=== PATIENT | male | born 1950 | race Caucasian/White ===

== ENCOUNTER 2018-08-23 12:00 | Observation (INO) | payer MEDICARE, SELFPAY ==
[2018-08-23] VITALS (11 sets, daily range): BP systolic 110–164; BP diastolic 55–102; PULSE 0–71; RESP 12–16; TEMP 36.6–36.7; O2SAT 94–97; BMI 35.3; BMI 34.7; BMI 34.8
--- NOTE | 2018-08-23 12:11 | RAD_ITS ---
We are attempting to reach an attending provider to discuss findings. An addendum with communication details will be sent when the communication is complete. STUDY: X-RAY CHEST REASON FOR EXAM: Male, 68 years old. Chest pain. TECHNIQUE: COMPARISON: None. FINDINGS: There is prominence of the left epicardial fat. The lungs are clear and expanded. There is no demonstrated pleural abnormality. Normal size heart. Normal mediastinum and steven. Normal visualized pulmonary arteries. Normal visualized aortic arch and descending thoracic aorta. Normal visualized thoracic spine. Normal visualized ribs, clavicles, and shoulders. There is no demonstrated abnormality of the visualized soft tissue structures of the upper abdomen. RAD/Chest 1 View (Portable) IMPRESSION: Prominence of the left epicardial fat. Other underlying entities aren't excluded. PA and lateral views may be helpful for further evaluation. Otherwise normal x-ray examination of the chest. Electronically Signed: Gianni Mcrae, at 12:37 EDT Tel , Service support ,
--- NOTE | 2018-08-23 12:11 | EKG12_ITS ---
Test Reason : CP Blood Pressure : / mmHG Vent. Rate : 061 BPM Atrial Rate : 061 BPM P-R Int : 246 ms QRS Dur : 094 ms QT Int : 404 ms P-R-T Axes : 034 002 021 degrees QTc Int : 406 ms Sinus rhythm with 1st degree A-V block Septal infarct , age undetermined Abnormal ECG Confirmed by ATILIO CARRERA ([id number]), editor greeting card SEE NAILS ([id number]) on 08/25/2018 1:50:14 PM Referred By: DAJUAN Confirmed By:ATILIO CARRERA
--- NOTE | 2018-08-23 12:14 | ED.VISSUMM ---
- ER Visit Summary Date of Service: 08/23/18 Chief Complaint: Chest pain History of Present Illness: The patient is a 68 M presenting with chest pain. Patient states he has had intermittent chest pain over the past week. He states it has been becoming more frequent. He states he notes when he walks his dog and goes uphill he becomes short of breath and has midsternal chest pressure. He has associated nausea and lightheadedness. He has relief with rest. He states that he has not felt well over the last couple days with fatigue and weakness. He has a history of hypertension, diabetes, hypercholesterolemia. He is not a smoker. No PE/DVT risk factors. Physical Examination: Vitals are stable. Patient is afebrile. Alert no acute distress. HEENT exam is unremarkable. Neck is supple. Lungs are clear and equal bilaterally. Heart is regular rate and rhythm. Abdomen is soft nontender nondistended. Extremities are unremarkable. Skin is warm and dry. No focal neurologic deficit. Remainder of exam is unremarkable. Emergency Department Course and Treatment: Patient was given aspirin, nitro. EKG is sinus rate of 61 with no acute ischemic changes. Chest x-ray shows Prominence of the left epicardial fat. Otherwise normal x-ray examination of the chest. CBC, chemistries unremarkable. Troponin is negative. He is pain-free after nitro. Discussed with Dr. Rojas for admission. Disposition: Admission Impression: Chest pain This note was generated with Lingt dictation software. It may contain incorrect words, spelling, and punctuation that were not noted in review of the chart prior to signing ED Disposition - Plan for ED Patient: Referrals: Chris Calhoun MD [Primary Care Provider] -
[2018-08-23 12:33] LABS: Absolute Lymphocyte Count 1.53 X10^3/ul (0.83-4.51); Absolute Neutrophil Count 3.4 X10^3/uL (2.0-7.7); Basophil# 0.05 X10^3/uL; Basophil% 0.9 % (0-1); Eosinophil# 0.18 X10^3/uL; Eosinophils% 3.1 % (0-5); Hematocrit 44.5 % (40-54); Hemoglobin 15.2 g/dl (13.0-16.5); Lymphocyte # 1.53 X10^3/ul (4.0); Lymphocyte % 26.2 % (19-41); Mean Corp Hgb Conc 34.2 g/gl (32-36); Mean Corpuscular Hgb 32.1 pg (27.0-32.0); Mean Corpuscular Volume 94.1 fL (80-94); Mean Platelet Vol. 9.6 fl (6.2-12.0); Monocyte# 0.69 X10^3/uL; Monocyte% 11.8 % (0-10); Neutrophil # 3.37 X10^3/uL (2.7-7.7); Neutrophil % 57.8 % (47-70); Platelet Count 202 K/mm3 (150-450); RBC Distribution Width CV 11.8 % (11.6-14.6); RBC Distribution Width SD 39.9 fl (35.1-43.9); Red Blood Count 4.73 M/mm3 (4.6-6.2); White Blood Count 5.8 K/mm3 (4.4-11.0)
[2018-08-23 12:35] LABS: POSITIVE COUNT NO; POSITIVE DIFFERENTIAL NO; POSITIVE MORPHOLOGY NO
[2018-08-23] MEDS: Aspirin 81 MG TAB.CHEW 324 MG PO (12:44)
[2018-08-23] MEDS: Nitroglycerin SL (ED/IMG/CATH) 0.4 MG TABLET SUBLINGUAL (12:45)
--- NOTE | 2018-08-23 12:47 | ED.RN ---
PT DENIES ANY RECIENT USE OF ED MEDS, CHEST PRESSURE IS A 4/10 AT ADMIN VS 146/90 61 96%
[2018-08-23 12:49] LABS: Anion Gap 7 (5-15); BUN 10 mg/dL (7-18); BUN/Creat Ratio 10.3 RATIO (10-20); Calcium,Total 9.1 mg/dL (8.5-10.1); Chloride 105 mmol/L (98-107); Creatinine, Serum 0.97 mg/dL (0.70-1.30); EST Glomerular Filtration Rate 82 mL/min (>60); Est Glom Filt Rate - Afr Amer 99 mL/min (>60); Glucose 109 mg/dL (74-106); Potassium 4.4 mmol/L (3.5-5.1); Sodium Level 140 mmol/L (136-145)
--- NOTE | 2018-08-23 13:06 | NURSING ---
DR HUMAIRA GRAFF
--- NOTE | 2018-08-23 13:06 | NURSING ---
FAYEU CP, R/O ACS HUMAIRA
--- NOTE | 2018-08-23 13:13 | NURSING ---
DR GERARDO IN ER
--- NOTE | 2018-08-23 13:44 | PCM.HP.STD ---
Problem List (1) Chest pain Status: Acute (2) Hypertension Status: Chronic (3) Diabetes mellitus type 2 Status: Chronic (4) Dyslipidemia Status: Chronic History of Present Illness Date of Admission: 08/23/18 Chief Complaint: Chest pain for 1 to 2 weeks The patient is a 68 year old M with history of hypertension, dyslipidemia and on primary prophylaxis baby aspirin but no previous [place]?coronary artery disease him to ER with chest pain on exertion for 1 to 2 weeks. Patient noticed chest pain with associated shortness of breath on going uphill with dogs in [place]. Chest pain is intermittent, localized midsternal with no radiation associated with exertion and relieved with rest. It seems angina in quality. Denies previous evaluation by stress test or cardiac cath. No history of his smoking or chronic lung disease. He mentioned he had some chest congestion and one time loose bowel movement, semisolid few days ago but denies fever or chills. [] EKG in ER shows normal sinus rhythm with first-degree AV block, [place] interval 246 ms. QTc [address]-T changes. Chest x-ray does not show any acute change. Past Medical History Past Medical History (Chronic Problems): Chronic Problems Hypertension (Chronic) Diabetes mellitus type 2 (Chronic) Dyslipidemia (Chronic) Allergies No Known Allergies Allergy (Verified 08/23/18 12:01) Home Medications: Ambulatory Orders Medication Instructions Recorded Aspirin [Aspirin, Baby] 81 mg PO DAILY 08/23/18 Losartan Potassium [Cozaar] 50 mg PO DAILY 08/23/18 Metformin HCl [Metformin ER 1,000 mg PO DAILY 08/23/18 Osmotic] Simvastatin [Zocor] 20 mg PO QHS 08/23/18 Smoking Status: Never smoker - *Family History Paternal History Items: No pertinent history - Of coronary artery disease or [place]. He said perhaps grandfather had some heart disease Review of Systems Constitutional: Denies: Chills, Fever, Weight Change HEENT: Denies: Head Aches, Sinus Congestion, Sinus Drainage Cardiovascular: Reports: Chest Pain, Chest Tightness. Denies: Palpitations Respiratory: Reports: Shortness of breath upon exertion. Denies: Cough, Shortness of breath at rest, Sputum production Gastrointestinal: Denies: Abdominal Pain, Nausea, Vomiting Genitourinary: Denies: Dysuria Musculoskeletal: Denies: Joint Pain, Joint Tenderness Skin: Denies: Rash, Wounds Neurological: Denies: Balance problems, Focal weakness, Numbness, Tingling Psychiatric: Denies: Anxiety, Depression, Homicidal Ideations, Suicidal Ideations Hematologic/ Lymphatic: Denies: Easy Bruising, Easy Bleeding VTE Information - Inpt Only VTE Present on Admission: No VTE Mechan Device Prophylaxis: None VTE Pharm Prophylaxis ordered?: Yes Patient Problems: Active and Suspected Problems Chest pain (Acute) - Physical Exam General: Alert, Oriented x3, Cooperative HEENT: Atraumatic, PERRLA, EOMI, Normocephalic Neck: Supple, No JVD, Negative Carotid Bruits Lungs: Clear to auscultation, Normal air movement, No rhonchi, No wheeze, No rales Cardiovascular: Regular rate, Regular Rhythm, Normal S1, Normal S2, No murmurs Abdomen: Bowel Sounds Present, Soft, Non Tender, Non-Distended Extremities: No edema, Capillary Refill Less than 3 Seconds Skin: No rashes, No breakdown Musculoskeletal: No Tenderness to Palpation of Joints or Extremities, Arthritic Changes Lymphatic: No Cervical, Supraclavicular, or Inguinal Adenopathy Neurological: Cranial nerves II-XII grossly intact, Deep Tendon Reflexes 2+/4 and Symmetrical, Neuro grossly intact, Motor Exam 5/5 strength throughout Psych/Mental Status: Normal Affect, Appropriate Vital Signs Temp Pulse Resp BP Pulse Ox 97.9 F 0 L 12 135/88 H 96 08/23/18 12:01 08/23/18 13:11 08/23/18 13:11 08/23/18 13:11 08/23/18 13:11 Oxygen Delivery Method Room Air Weight: 246 lb 4.101 oz Body Mass Index (BMI) 35.3 Laboratory Tests Past 24 Hrs 08/23/18 08/23/18 12:20 12:20 WBC 5.8 RBC 4.73 Hgb 15.2 Hct 44.5 MCV 94.1 H MCH 32.1 H MCHC 34.2 RDW 11.8 RDW Differential 39.9 Plt Count 202 MPV 9.6 Immature Gran % (Auto) 0.200 Neut % (Auto) 57.8 Lymph % (Auto) 26.2 [place] % (Auto) 11.8 H Eos % (Auto) 3.1 Baso % (Auto) 0.9 Absolute Neuts (auto) 3.4 Absolute Lymphs (auto) 1.53 Total Counted Not Reportable Sodium 140 Potassium 4.4 Chloride 105 Carbon Dioxide 28.0 Anion Gap 7 BUN 10 Creatinine 0.97 Estim Creat Clear Calc 76.30 Est GFR (MDRD) Af Amer 99 Est GFR (MDRD) Non-Af 82 BUN/Creatinine Ratio 10.3 Glucose 109 H Calcium 9.1 Troponin I < 0.015 Assessment/Plan All Active Problems Chest pain (Acute) The patient is a 68 year old M with history of hypertension, dyslipidemia and on primary prophylaxis baby aspirin but no previous [place]?coronary artery disease him to ER with chest pain on exertion for 1 to 2 weeks. Patient noticed chest pain with associated shortness of breath on going uphill with dogs in [place]. Chest pain is intermittent, localized midsternal with no radiation associated with exertion and relieved with rest. It seems angina in quality. Denies previous evaluation by stress test or cardiac cath. No history of his smoking or chronic lung disease. [] EKG in ER shows normal sinus rhythm with first-degree AV block, GA interval 246 ms. QTc [address]-T changes. Chest x-ray does not show any acute change. 1.Typical chest pain of anginal quality; possible unstable angina: The patient is being admitted on PCU. Serial troponin enzymes and EKG. Patient was told that he has to stay until Saturday for treadmill nuclear stress test but seems not very eager to stay but will decide tomorrow based on troponin results. Fasting profile and TSH tomorrow a.m. 2. Flulike illness a few days ago: Flu panel test ordered. Currently does not have cough, fever or chills or GI symptoms or diarrhea. 3. Diabetes mellitus type 2: Glucose in BMP is 109. On metformin which is being held. A1c tomorrow a.m. 4. Hypertension: Pressure is good. Resume home medication losartan. 5. Dyslipidemia: On home statin. DVT prophylaxis: On Lovenox 40 mg subcu daily. Laboratory Results 08/23/18 12:20: WBC 5.8, RBC 4.73, Hgb 15.2, Hct 44.5, MCV 94.1 H, MCH 32.1 H, MCHC 34.2, RDW 11.8, RDW Differential 39.9, Plt Count 202, MPV 9.6, Immature Gran % (Auto) 0.200, Neut % (Auto) 57.8, Lymph % (Auto) 26.2, [place] % (Auto) 11.8 H, Eos % (Auto) 3.1, Baso % (Auto) 0.9, Absolute Neuts (auto) 3.4, Absolute Lymphs (auto) 1.53, Total Counted Not Reportable 08/23/18 12:20: Sodium 140, Potassium 4.4, Chloride 105, Carbon Dioxide 28.0, Anion Gap 7, BUN 10, Creatinine 0.97, Estim Creat Clear Calc 76.30, Est GFR (MDRD) Af Amer 99, Est GFR (MDRD) Non-Af 82, BUN/Creatinine Ratio 10.3, Glucose 109 H, Calcium 9.1, Troponin I < 0.015 Clinical Impression(s) from Imaging Studies Chest X-Ray 08/23/18 12:11 IMPRESSION: Prominence of the left epicardial fat. Other underlying entities aren't excluded. PA and lateral views may be helpful for further evaluation. Otherwise normal x-ray examination of the chest. \ Code Visit OBSV E&M: 15742 Initial observation care L3
--- NOTE | 2018-08-23 13:49 | HP.PCM_ITS ---
Problem List (1) Chest pain Status: Acute (2) Hypertension Status: Chronic (3) Diabetes mellitus type 2 Status: Chronic (4) Dyslipidemia Status: Chronic History of Present Illness Date of Admission: 08/23/18 Chief Complaint: Chest pain for 1 to 2 weeks The patient is a 68 year old M with history of hypertension, dyslipidemia and on primary prophylaxis baby aspirin but no previous [place]?coronary artery disease him to ER with chest pain on exertion for 1 to 2 weeks. Patient noticed chest pain with associated shortness of breath on going uphill with dogs in [place]. Chest pain is intermittent, localized midsternal with no radiation associated with exertion and relieved with rest. It seems angina in quality. Denies previous evaluation by stress test or cardiac cath. No history of his smoking or chronic lung disease. He mentioned he had some chest congestion and one time loose bowel movement, semisolid few days ago but denies fever or chills. [] EKG in ER shows normal sinus rhythm with first-degree AV block, [place] interval 246 ms. QTc [address]-T changes. Chest x-ray does not show any acute change. Past Medical History Past Medical History (Chronic Problems): Chronic Problems Hypertension (Chronic) Diabetes mellitus type 2 (Chronic) Dyslipidemia (Chronic) Allergies No Known Allergies Allergy (Verified 08/23/18 12:01) Home Medications: Ambulatory Orders Medication Instructions Recorded Aspirin [Aspirin, Baby] 81 mg PO DAILY 08/23/18 Losartan Potassium [Cozaar] 50 mg PO DAILY 08/23/18 Metformin HCl [Metformin ER 1,000 mg PO DAILY 08/23/18 Osmotic] Simvastatin [Zocor] 20 mg PO QHS 08/23/18 Smoking Status: Never smoker - *Family History Paternal History Items: No pertinent history - Of coronary artery disease or [place]. He said perhaps grandfather had some heart disease Review of Systems Constitutional: Denies: Chills, Fever, Weight Change HEENT: Denies: Head Aches, Sinus Congestion, Sinus Drainage Cardiovascular: Reports: Chest Pain, Chest Tightness. Denies: Palpitations Respiratory: Reports: Shortness of breath upon exertion. Denies: Cough, Shortness of breath at rest, Sputum production Gastrointestinal: Denies: Abdominal Pain, Nausea, Vomiting Genitourinary: Denies: Dysuria Musculoskeletal: Denies: Joint Pain, Joint Tenderness Skin: Denies: Rash, Wounds Neurological: Denies: Balance problems, Focal weakness, Numbness, Tingling Psychiatric: Denies: Anxiety, Depression, Homicidal Ideations, Suicidal Ideations Hematologic/ Lymphatic: Denies: Easy Bruising, Easy Bleeding VTE Information - Inpt Only VTE Present on Admission: No VTE Mechan Device Prophylaxis: None VTE Pharm Prophylaxis ordered?: Yes Patient Problems: Active and Suspected Problems Chest pain (Acute) - Physical Exam General: Alert, Oriented x3, Cooperative HEENT: Atraumatic, PERRLA, EOMI, Normocephalic Neck: Supple, No JVD, Negative Carotid Bruits Lungs: Clear to auscultation, Normal air movement, No rhonchi, No wheeze, No rales Cardiovascular: Regular rate, Regular Rhythm, Normal S1, Normal S2, No murmurs Abdomen: Bowel Sounds Present, Soft, Non Tender, Non-Distended Extremities: No edema, Capillary Refill Less than 3 Seconds Skin: No rashes, No breakdown Musculoskeletal: No Tenderness to Palpation of Joints or Extremities, Arthritic Changes Lymphatic: No Cervical, Supraclavicular, or Inguinal Adenopathy Neurological: Cranial nerves II-XII grossly intact, Deep Tendon Reflexes 2+/4 and Symmetrical, Neuro grossly intact, Motor Exam 5/5 strength throughout Psych/Mental Status: Normal Affect, Appropriate Vital Signs Temp Pulse Resp BP Pulse Ox 97.9 F 0 L 12 135/88 H 96 08/23/18 12:01 08/23/18 13:11 08/23/18 13:11 08/23/18 13:11 08/23/18 13:11 Oxygen Delivery Method Room Air Weight: 246 lb 4.101 oz Body Mass Index (BMI) 35.3 Laboratory Tests Past 24 Hrs 08/23/18 08/23/18 12:20 12:20 WBC 5.8 RBC 4.73 Hgb 15.2 Hct 44.5 MCV 94.1 H MCH 32.1 H MCHC 34.2 RDW 11.8 RDW Differential 39.9 Plt Count 202 MPV 9.6 Immature Gran % (Auto) 0.200 Neut % (Auto) 57.8 Lymph % (Auto) 26.2 [place] % (Auto) 11.8 H Eos % (Auto) 3.1 Baso % (Auto) 0.9 Absolute Neuts (auto) 3.4 Absolute Lymphs (auto) 1.53 Total Counted Not Reportable Sodium 140 Potassium 4.4 Chloride 105 Carbon Dioxide 28.0 Anion Gap 7 BUN 10 Creatinine 0.97 Estim Creat Clear Calc 76.30 Est GFR (MDRD) Af Amer 99 Est GFR (MDRD) Non-Af 82 BUN/Creatinine Ratio 10.3 Glucose 109 H Calcium 9.1 Troponin I < 0.015 Assessment/Plan All Active Problems Chest pain (Acute) The patient is a 68 year old M with history of hypertension, dyslipidemia and on primary prophylaxis baby aspirin but no previous [place]?coronary artery disease him to ER with chest pain on exertion for 1 to 2 weeks. Patient noticed chest pain with associated shortness of breath on going uphill with dogs in [place]. Chest pain is intermittent, localized midsternal with no radiation associated with exertion and relieved with rest. It seems angina in quality. Denies previous evaluation by stress test or cardiac cath. No history of his smoking or chronic lung disease. [] EKG in ER shows normal sinus rhythm with first-degree AV block, [place] interval 246 ms. QTc [address]-T changes. Chest x-ray does not show any acute change. 1.Typical chest pain of anginal quality; possible unstable angina: The patient is being admitted on PCU. Serial troponin enzymes and EKG. Patient was told that he has to stay until Saturday for treadmill nuclear stress test but seems not very eager to stay but will decide tomorrow based on troponin results. Fasting profile and TSH tomorrow a.m. 2. Flulike illness a few days ago: Flu panel test ordered. Currently does not have cough, fever or chills or GI symptoms or diarrhea. 3. Diabetes mellitus type 2: Glucose in BMP is 109. On metformin which is being held. A1c tomorrow a.m. 4. Hypertension: Pressure is good. Resume home medication losartan. 5. Dyslipidemia: On home statin. DVT prophylaxis: On Lovenox 40 mg subcu daily. Laboratory Results 08/23/18 12:20: WBC 5.8, RBC 4.73, Hgb 15.2, Hct 44.5, MCV 94.1 H, MCH 32.1 H, MCHC 34.2, RDW 11.8, RDW Differential 39.9, Plt Count 202, MPV 9.6, Immature Gran % (Auto) 0.200, Neut % (Auto) 57.8, Lymph % (Auto) 26.2, [place] % (Auto) 11.8 H, Eos % (Auto) 3.1, Baso % (Auto) 0.9, Absolute Neuts (auto) 3.4, Absolute Lymphs (auto) 1.53, Total Counted Not Reportable 08/23/18 12:20: Sodium 140, Potassium 4.4, Chloride 105, Carbon Dioxide 28.0, Anion Gap 7, BUN 10, Creatinine 0.97, Estim Creat Clear Calc 76.30, Est GFR (MDRD) Af Amer 99, Est GFR (MDRD) Non-Af 82, BUN/Creatinine Ratio 10.3, Glucose 109 H, Calcium 9.1, Troponin I < 0.015 Clinical Impression(s) from Imaging Studies Chest X-Ray 08/23/18 12:11 IMPRESSION: Prominence of the left epicardial fat. Other underlying entities aren't excluded. PA and lateral views may be helpful for further evaluation. Otherwise normal x-ray examination of the chest. \ Code Visit OBSV E&M: 22243 Initial observation care L3
--- NOTE | 2018-08-23 13:52 | EKG12_ITS ---
Test Reason : CP ADMISSION Blood Pressure : / mmHG Vent. Rate : 058 BPM Atrial Rate : 058 BPM P-R Int : 256 ms QRS Dur : 096 ms QT Int : 418 ms P-R-T Axes : 034 002 017 degrees QTc Int : 410 ms Sinus bradycardia with 1st degree A-V block Septal infarct , age undetermined Abnormal ECG Confirmed by ROULA DAY, PUJA ([id number]), publication editor SEE NAILS ([id number]) on 08/27/2018 2:00:47 PM Referred By: HUMAIRA Confirmed By:PUJA CELESTE MD
--- NOTE | 2018-08-23 20:16 | NURSING ---
This RN finished assessing patient and explained to him what time night time medications would be given. Patient stated his brought home medications in and he had taken his night medications. This RN explained to the patient that we would administer medications from our pharmacy. Also explained to patient that there were certain medications he was not to take because of testing and certain medications he would need to take a specific times for testing. Patient verbalized understanding and agreed to take the medications we provide for him. The medication he took was marked on the MAR as not given.
[2018-08-24 03:00] VITALS: PULSE 55
[2018-08-24 04:17] VITALS: BP 109/68; PULSE 55; RESP 16; TEMP 36.8; O2SAT 94
[2018-08-24 06:13] LABS: Cholesterol 116 mg/dL (200); High Density Lipoprotein 36 mg/dL; Triglycerides 121 mg/dL; Very Low Density Lipoprotein 24 mg/dL (5-40)
[2018-08-24 07:00] VITALS: PULSE 54
[2018-08-24 07:36] LABS: Hemoglobin A1c 7.2 % (4.2-6.3)
--- NOTE | 2018-08-24 07:47 | NURSING ---
pt states will be in to take home medications home.
[2018-08-24 09:20] VITALS: BP 133/91; PULSE 70; RESP 12; TEMP 36.6; O2SAT 93
--- NOTE | 2018-08-24 10:01 | DCINST_ITS ---
- Discharge Diagnoses Current Active Problems: Current Active and Chronic Problems Chest pain (Acute) Hypertension (Chronic) Diabetes mellitus type 2 (Chronic) Dyslipidemia (Chronic) You will use the following diet at home:: Cardiac Your food should be the consistency of: Regular Discharge Activity: Return to Normal Activity Call your doctor if you observe: Fever of 101 or Higher, Inability to urinate, Inability to have a bowel movement, Shortness of breath, Dizziness, Fainting spells, Swelling in the ankles, Chest pain, Calf discomfort, Uncontrolled pain Additional Instructions: treadmill myocardial nuclear perfusion scan in 1 week. Allergies/Adverse Reactions: Allergies No Known Allergies Allergy (Verified 08/23/18 12:01) Medications to take at Discharge Aspirin [Aspirin, Baby] 81 mg PO DAILY 08/23/18 Losartan Potassium [Cozaar] 50 mg PO DAILY 08/23/18 Metformin HCl [Metformin ER Osmotic] 1,000 mg PO DAILY 08/23/18 Simvastatin [Zocor] 20 mg PO QHS 08/23/18 Primary Care Physician: Chris Calhoun MD [Primary Care Provider] - Please follow up with your Primary Care Physician in: in 1-2 week Test Results: Test results from this visit will be discussed in further detail at your follow- up appointment, if applicable.
--- NOTE | 2018-08-24 10:24 | PCM.DC.SUM ---
<Su Rocha - Last Filed: 08/24/18 10:35> Discharge Date and Diagnosis Date of Admission: 08/23/18 Date of Discharge: 08/24/18 - Primary Discharge Diagnosis Active and Suspected Problems 1. Chest pain, ACS ruled out 2. Hypertension 3. Type 2 diabetes mellitus 4. Hyperlipidemia - Secondary Discharge Diagnosis Chronic Problems Hypertension (Chronic) Diabetes mellitus type 2 (Chronic) Dyslipidemia (Chronic) Hospital Course and Treatment Imaging Results: Diagnostic Data Chest X-Ray 08/23/18 12:11 IMPRESSION: Prominence of the left epicardial fat. Other underlying entities aren't excluded. PA and lateral views may be helpful for further evaluation. Otherwise normal x-ray examination of the chest. Electronically Signed: Gianni Thor, at 12:37 EDT Tel , Service support , ADDENDUM: 08/23/18 1253 IMPRESSION: Prominence of the left epicardial fat. Other underlying entities aren't excluded. PA and lateral views may be helpful for further evaluation. Otherwise normal x-ray examination of the chest. N.B. : Eve Walden RN, confirmed on 08/23/2018 12:46:25 (ET) that the referring physician received the radiology report. Electronically Signed: Gianni Mcrae, at 12:37 EDT Tel , Service support , Operations: None Procedures: None Summary of Care Provided: The patient is a 68 year old M admitted 08/23/2018 due to chest pain X 1-2 weeks. Patient reports he has noticed a chest pressure and shortness of breath associated with exertion which is new in the past few weeks. He has a past medical history of hypertension, hyperlipidemia, recent diagnosis type 2 diabetes mellitus placed on metformin approximately 1 month ago. He feels his current symptoms may be due to metformin regimen. Troponin negative. EKG without ST-T changes. Recommended stress test Saturday morning as stress test cannot be completed on Saturday. Patient was adamant about leaving and states he will follow closely with primary care physician and complete stress test as an outpatient. He denies further symptoms during admission. He reports he has follow up with PCP tomorrow. General: Alert, Oriented x3, Cooperative HEENT: Atraumatic, PERRLA, EOMI, Normocephalic Neck: Supple, No JVD, Negative Carotid Bruits Lungs: Clear to auscultation, Normal air movement, No rhonchi, No wheeze, No rales Cardiovascular: Regular rate, Regular Rhythm, Normal S1, Normal S2, No murmurs Abdomen: Bowel Sounds Present, Soft, Non Tender, Non-Distended Extremities: No edema, Capillary Refill Less than 3 Seconds Skin: No rashes, No breakdown Musculoskeletal: No Tenderness to Palpation of Joints or Extremities, Arthritic Changes Lymphatic: No Cervical, Supraclavicular, or Inguinal Adenopathy Neurological: Cranial nerves II-XII grossly intact, Neuro grossly intact Psych/Mental Status: Normal Affect, Appropriate Patient seen and examined prior to discharge. Physical assessment as noted above. Patient is stable for discharge with follow up recommendations as noted above. This patient was seen by JOSEPH Olmstead under the supervision of Dr. Rojas. - Physical Exam Vital Signs Temp Pulse Resp BP Pulse Ox 97.9 F 70 12 133/91 H 93 08/24/18 09:20 08/24/18 09:20 08/24/18 09:20 08/24/18 09:20 08/24/18 09:20 Oxygen Delivery Method Room Air Weight: 242 lb 8.136 oz Body Mass Index (BMI) 34.7 Intake and Output for Last 24 Hours 08/22/18 08/23/18 08/24/18 23:59 23:59 23:59 Intake Total 300 / 300 480 / 480 Balance 300 / 300 480 / 480 Microbiology Past 72 Hours 08/23/18 14:25 - Final Mucosa - Nasopharyngeal Laboratory Tests Past 24 Hrs 08/23/18 08/23/18 08/23/18 12:20 12:20 15:35 WBC 5.8 RBC 4.73 Hgb 15.2 Hct 44.5 MCV 94.1 H MCH 32.1 H MCHC 34.2 RDW 11.8 RDW Differential 39.9 Plt Count 202 MPV 9.6 Immature Gran % (Auto) 0.200 Neut % (Auto) 57.8 Lymph % (Auto) 26.2 [place] % (Auto) 11.8 H Eos % (Auto) 3.1 Baso % (Auto) 0.9 Absolute Neuts (auto) 3.4 Absolute Lymphs (auto) 1.53 Total Counted Not Reportable Sodium 140 Potassium 4.4 Chloride 105 Carbon Dioxide 28.0 Anion Gap 7 BUN 10 Creatinine 0.97 Estim Creat Clear Calc 76.30 Est GFR (MDRD) Af Amer 99 Est GFR (MDRD) Non-Af 82 BUN/Creatinine Ratio 10.3 Glucose 109 H Hemoglobin A1c Calcium 9.1 Troponin I < 0.015 < 0.015 Triglycerides Cholesterol LDL Cholesterol VLDL Cholesterol HDL Cholesterol TSH 08/23/18 08/24/18 08/24/18 18:00 04:58 04:58 WBC RBC Hgb Hct MCV MCH MCHC RDW RDW Differential Plt Count MPV Immature Gran % (Auto) Neut % (Auto) Lymph % (Auto) [place] % (Auto) Eos % (Auto) Baso % (Auto) Absolute Neuts (auto) Absolute Lymphs (auto) Total Counted Sodium Potassium Chloride Carbon Dioxide Anion Gap BUN Creatinine Estim Creat Clear Calc Est GFR (MDRD) Af Amer Est GFR (MDRD) Non-Af BUN/Creatinine Ratio Glucose Hemoglobin A1c 7.2 H Calcium Troponin I < 0.015 Triglycerides 121 Cholesterol 116 LDL Cholesterol 56 VLDL Cholesterol 24 HDL Cholesterol 36 L TSH 1.60 Discharge Diet: Low fat/ Low Cholesterol, Carb Control Diet Discharge Activity: Return to Normal Activity Call your doctor if you observe: Fever of 101 or Higher, Inability to urinate, Inability to have a bowel movement, Shortness of breath, Dizziness, Fainting spells, Swelling in the ankles, Chest pain, Calf discomfort, Uncontrolled pain Home Medications: Medications to take at Discharge Aspirin [Aspirin, Baby] 81 mg PO DAILY 08/23/18 Losartan Potassium [Cozaar] 50 mg PO DAILY 08/23/18 Metformin HCl [Metformin ER Osmotic] 1,000 mg PO DAILY 08/23/18 Simvastatin [Zocor] 20 mg PO QHS 08/23/18 Primary Care Physician: Chris Calhoun MD [Primary Care Provider] - Please follow up with your Primary Care Physician in: in 1-2 week Disposition: Home Minutes spent on discharge:: 35 Patient Condition:: Stable Medical Necessity - Tobacco Use Smoking Status: Never smoker Meaningful Use Info Meaningful Use Diagnoses (Choose all that apply): None applicable <Mateus Rojas - Last Filed: 08/24/18 13:45> Discharge Date and Diagnosis - Secondary Discharge Diagnosis Chronic Problems Hypertension (Chronic) Diabetes mellitus type 2 (Chronic) Dyslipidemia (Chronic) Hospital Course and Treatment Summary of Care Provided: The patient is a 68 year old M was admitted with intermittent chest pain for 1 to 2 weeks along with shortness of breath on exertion. Patient was monitored in PCU. Serial troponin enzymes were negative. EKG not suggestive of ischemic changes. Patient did not want to stay for treadmill nuclear stress test tomorrow on Saturday but wants to go home and complete early next week. Patient does not have symptoms hemodynamically stable. Blood pressure and heart rate well controlled. Acute coronary syndrome ruled out. Discharge medication reconciliation done. Discharge follow-up instructions completed. Discharge process discussed with the patient and all questions were answered to patient's satisfaction. Subjective: Patient did not had any further chest pain or shortness of breath. Patient wants to go home. - Physical Exam General: Alert, Oriented x3, Cooperative HEENT: Atraumatic, PERRLA, EOMI, Normocephalic Neck: Supple, No JVD, Negative Carotid Bruits Lungs: Clear to auscultation, Normal air movement, No rhonchi, No wheeze, No rales Cardiovascular: Regular rate, Regular Rhythm, Normal S1, Normal S2, No murmurs Abdomen: Bowel Sounds Present, Soft, Non Tender, Non-Distended Extremities: No edema, Capillary Refill Less than 3 Seconds Skin: No rashes, No breakdown Musculoskeletal: No Tenderness to Palpation of Joints or Extremities Lymphatic: No Cervical, Supraclavicular, or Inguinal Adenopathy Neurological: Cranial nerves II-XII grossly intact, Deep Tendon Reflexes 2+/4 and Symmetrical, Neuro grossly intact, Motor Exam 5/5 strength throughout Psych/Mental Status: Normal Affect, Appropriate Vital Signs Temp Pulse Resp BP Pulse Ox 97.9 F 70 12 133/91 H 93 08/24/18 09:20 08/24/18 09:20 08/24/18 09:20 08/24/18 09:20 08/24/18 09:20 Oxygen Delivery Method Room Air Weight: 242 lb 8.136 oz Body Mass Index (BMI) 34.7 Intake and Output for Last 24 Hours 08/22/18 08/23/18 08/24/18 23:59 23:59 23:59 Intake Total 300 / 300 480 / 480 Balance 300 / 300 480 / 480 Microbiology Past 72 Hours 08/23/18 14:25 - Final Mucosa - Nasopharyngeal Laboratory Tests Past 24 Hrs 08/23/18 08/23/18 08/24/18 15:35 18:00 04:58 Hemoglobin A1c Troponin I < 0.015 < 0.015 Triglycerides 121 Cholesterol 116 LDL Cholesterol 56 VLDL Cholesterol 24 HDL Cholesterol 36 L TSH 1.60 08/24/18 04:58 Hemoglobin A1c 7.2 H Troponin I Triglycerides Cholesterol LDL Cholesterol VLDL Cholesterol HDL Cholesterol TSH Code Visit OBSV E&M: 10310 Observation care discharge
== END 2018-08-24 10:01 | disposition home or self-care (01) ==
LOC: ED 12:30 → PCU 13:22
PROVIDERS: Admitting Provider Internal Medicine; Emergency Provider Emergency Medicine; Family Provider Family Medicine; PCP Family Medicine; Visit Provider Internal Medicine
DX: R07.89 Other chest pain (principal); R06.02 Shortness of breath; R11.0 Nausea; R42 Dizziness and giddiness; I10 Essential (primary) hypertension; E11.9 Type 2 diabetes mellitus without complications; Z79.899 Other long term (current) drug therapy; Z79.84 Long term (current) use of oral hypoglycemic drugs; Z79.82 Long term (current) use of aspirin; E78.5 Hyperlipidemia, unspecified
CPT/HCPCS: 36415; 71045; 80048; 80061; 83036; 84443; 84484; 85025; 87631; 93005; 99218; 99285; G0378

== ENCOUNTER 2018-09-10 17:25 | Observation (INO) | payer MEDICARE, SELFPAY ==
[2018-08-23 13:54] VITALS: BMI 34.7
[2018-09-10 17:25] VITALS: BP 167/96; PULSE 58; RESP 14; TEMP 36.7; O2SAT 98; BMI 34.4
--- NOTE | 2018-09-10 17:54 | EKG12_ITS ---
Test Reason : CP Blood Pressure : / mmHG Vent. Rate : 057 BPM Atrial Rate : 057 BPM P-R Int : 258 ms QRS Dur : 098 ms QT Int : 416 ms P-R-T Axes : 041 009 009 degrees QTc Int : 404 ms Sinus bradycardia with 1st degree A-V block Otherwise normal ECG Confirmed by ROULA DAY, PUJA ([id number]), fan mail editor ILSA CHURCH ([id number]) on 09/15/2018 1:02:13 PM Referred By: Quintin Lowry Confirmed By:PUJA CELESTE MD
--- NOTE | 2018-09-10 18:00 | RAD_ITS ---
STUDY: X-RAY CHEST REASON FOR EXAM: Male, 68 years old. Chest pain TECHNIQUE: Single frontal view of the chest. COMPARISON: August 23, 2018 FINDINGS: There are stable nonspecific right basilar opacities. Normal size heart. Normal mediastinum and steven. Normal visualized pulmonary arteries. Normal visualized aortic arch and descending thoracic aorta. Normal visualized thoracic spine. Normal visualized ribs, clavicles, and shoulders. There is no demonstrated abnormality of the visualized soft tissue structures of the upper abdomen. RAD/Chest 1 View (Portable) IMPRESSION: Stable nonspecific right basilar opacities which may be secondary to a confluence of shadows however cannot exclude underlying atelectasis and/or evolving pneumonia. Electronically Signed: Mary Black MD at 18:33 EDT Tel , Service support ,
[2018-09-10] MEDS: 0.9% Normal Saline 1,000 ML 150 ML IV (18:12)
[2018-09-10 18:35] LABS: Absolute Lymphocyte Count 2.02 X10^3/ul (0.83-4.51); Absolute Neutrophil Count 4.5 X10^3/uL (2.0-7.7); Basophil# 0.05 X10^3/uL; Basophil% 0.7 % (0-1); Eosinophil# 0.19 X10^3/uL; Eosinophils% 2.5 % (0-5); Hematocrit 42.5 % (40-54); Hemoglobin 14.5 g/dl (13.0-16.5); Lymphocyte # 2.02 X10^3/ul (4.0); Lymphocyte % 26.5 % (19-41); Mean Corp Hgb Conc 34.1 g/gl (32-36); Mean Corpuscular Hgb 31.7 pg (27.0-32.0); Mean Platelet Vol. 9.8 fl (6.2-12.0); Monocyte# 0.86 X10^3/uL; Monocyte% 11.3 % (0-10); Neutrophil # 4.48 X10^3/uL (2.7-7.7); Neutrophil % 58.9 % (47-70); POSITIVE COUNT NO; POSITIVE DIFFERENTIAL NO; POSITIVE MORPHOLOGY NO; Platelet Count 198 K/mm3 (150-450); RBC Distribution Width CV 11.9 % (11.6-14.6); Red Blood Count 4.57 M/mm3 (4.6-6.2); White Blood Count 7.6 K/mm3 (4.4-11.0)
[2018-09-10 18:51] LABS: Anion Gap 7 (5-15); BUN 13 mg/dL (7-18); BUN/Creat Ratio 13.8 RATIO (10-20); Calcium,Total 8.9 mg/dL (8.5-10.1); Chloride 106 mmol/L (98-107); Creatinine, Serum 0.94 mg/dL (0.70-1.30); EST Glomerular Filtration Rate 85 mL/min (>60); Est Glom Filt Rate - Afr Amer 103 mL/min (>60); Estimated Creatinine Clearance 78.74 ml/min; Glucose 98 mg/dL (74-106); Sodium Level 139 mmol/L (136-145)
--- NOTE | 2018-09-10 19:18 | ED.VISSUMM ---
- ER Visit Summary Date of Service: 09/10/18 Chief Complaint: [Chest pain and exertional dyspnea] History of Present Illness: The patient is a 68 M [presents the emergency department symptoms for 5 weeks. Patient states that he is noticed that with activity he starts having some chest discomfort and pressure and feels very short of breath. Patient was seen 3 weeks ago in the emergency department and admitted on a Saturday however they were not doing stress test on Sundays and given that his heart enzymes were normal patient opted to go home and have an outpatient stress test ordered. Patient has a stress test ordered for tomorrow. Patient today woke up from a nap and did not feel well had chest discomfort and tingling in his arms and felt nauseated and short of breath and he presents for further evaluation. Patient continues to complain of exertional dyspnea and chest tightness. Patient did take 2 aspirin full dose prior to coming in. Patient has a history of diabetes, hypertension, and high cholesterol. Patient thinks he has had a stress test before but it has been many years and is never had a heart catheterization.] Physical Examination: [HEENT-PERRLA, EOMI. Cranial nerves II through XII grossly intact. TMs clear. Mucous membranes moist. No adenopathy. Cardiovascular-regular rate and rhythm without murmur or ectopy Lungs-clear to auscultation, chest wall stable without crepitus or subcu emphysema Abdomen-normoactive bowel sounds, soft, nontender, no rebound or rigidity, no peritoneal signs. Extremities-intact ?4, normal range of motion, normal pulses, atraumatic] Test Results: [EKG obtained arrival shows sinus rhythm with a ventricular rate of 57 bpm with no acute I segment changes. CBC with differential was normal. Chemistries normal. Troponin was less than 0.015. Chest x-ray showed some nonspecific basilar opacities.] Emergency Department Course and Treatment: [] Treatment Plan: [Patient will be admitted for further work-up and evaluation of his chest pain. Patient was pain-free on arrival therefore no further treatment was given.] Disposition: [Admit] Impression: [Chest pain-rule out acute coronary syndrome] This note was generated with [employer] software. It may contain incorrect words, spelling, and punctuation that were not noted in review of the chart prior to signing ED Disposition - Plan for ED Patient: Referrals: Chris Calhoun MD [Primary Care Provider] -
[2018-09-10 19:25] VITALS: BP 144/95; PULSE 54; RESP 14; O2SAT 97
[2018-09-10 19:59] VITALS: BMI 34.1
[2018-09-10 20:00] VITALS: BMI 34.1
[2018-09-10 20:05] VITALS: PULSE 48
--- NOTE | 2018-09-10 20:14 | EKG12_ITS ---
Test Reason : ADMISSION Blood Pressure : / mmHG Vent. Rate : 050 BPM Atrial Rate : 050 BPM P-R Int : 264 ms QRS Dur : 100 ms QT Int : 440 ms P-R-T Axes : 032 003 007 degrees QTc Int : 401 ms Sinus bradycardia with 1st degree A-V block Otherwise normal ECG Confirmed by ROULA DAY, PUJA ([id number]), editor at large ILSA CHURCH ([id number]) on 09/15/2018 3:06:38 PM Referred By: Quintin Lowry Confirmed By:PUJA CELESTE MD
[2018-09-10 20:15] VITALS: BP 153/91; PULSE 50; RESP 16; TEMP 36.6; O2SAT 95
[2018-09-10 20:16] VITALS: BP 156/88
[2018-09-10 23:02] VITALS: PULSE 53
--- NOTE | 2018-09-10 23:46 | PCM.HP.STD ---
Problem List (1) Chest pain Status: Acute History of Present Illness Date of Admission: 09/10/18 Chief Complaint: Chest pain, bilateral arm tingling The patient is a 68 year old M who was seen in the emergency room at [facility] with a chief complaint of bilateral arm tingling x15 minutes, he also complained of intermittent precordial chest discomfort which he described as pressure-like and nature. He states the chest discomfort has been going on intermittently x5 weeks, it is precipitated for the most part by activity and goes away at rest. Patient denies any discomfort into his neck or jaw or down his arms. Patient was scheduled to have an outpatient stress test performed tomorrow but he had tingling in his arms today starting at 4:30 PM and he became nauseated and came to the emergency room for evaluation. Evaluation in the emergency room revealed his labs to be normal including his troponin, EKG showed normal sinus rhythm with no evidence of ST-T wave changes. Patient will be placed and observation status on PCU, cardiac enzymes will be cycled, will have an exercise nuclear stress test tomorrow if his enzymes are negative. Past Medical History Past Medical History (Chronic Problems): Chronic Problems Hypertension (Chronic) Diabetes mellitus type 2 (Chronic) Dyslipidemia (Chronic) Allergies No Known Allergies Allergy (Verified 09/10/18 17:29) Home Medications: Ambulatory Orders Medication Instructions Recorded Losartan Potassium [Cozaar] 50 mg PO DAILY 08/23/18 Simvastatin [Zocor] 20 mg PO QHS 08/23/18 Aspirin E.C. [Ecotrin] 81 mg PO DAILY@0800 09/10/18 Metformin HCl 500 mg PO DAILY 09/10/18 [place]-3 Fatty Acids/Fish Oil 1 each PO DAILY 09/10/18 [[place] 3 Fish Oil Softgel] Ranitidine [Zantac] 150 mg PO BID 09/10/18 Saw [place] 160 mg PO DAILY 09/10/18 Sildenafil Citrate [Viagra] 50 mg PO DAILY PRN 09/10/18 Surgical History: tonsillectomy, - - Foot surgery, right shoulder and left shoulder surgery Psychiatric History: No pertinent psych hx Lives: Spouse/ Significant Other Smoking Status: Current some day smoker Tobacco Use: Cigarettes Alcohol: Occasional Drugs: None - *Family History Paternal History Items: Cancer - Colon cancer Maternal History Items: Cancer - Lung cancer, Diabetes Review of Systems Constitutional: Denies: Anorexia, Chills, Fever, Night Sweats, Malaise, Weakness, Weight Change, Fatigue Eyes: Denies: Cataracts, Conjunctivae Inflammation, Double vision, Drainage HEENT: Denies: Difficulty Swallowing, Dysphasia, Ear Pain, Eye Pain, Hearing Changes, Nasal bleeding, Nasal Congestion, Post Nasal Drip Cardiovascular: Reports: Chest Pain, Chest Pressure. Denies: Claudication, Chest Tightness, Edema, Heaviness, Orthopnea, Palpitations, Paroxysmal Noc. Dyspnea Respiratory: Denies: Cough, Hemoptysis, Pleuritic Pain, Shortness of Breath, Shortness of breath at rest, Shortness of breath upon exertion, Sputum production, Wheezing Gastrointestinal: Denies: Abdominal Pain, Constipation, Diarrhea, Hematemesis, Hematochezia, Nausea, Melena, Vomiting Genitourinary: Denies: Dysuria, Frequency, Hematuria, Hesitancy, Incontinence, Nocturia, Retention, Urgency Musculoskeletal: Denies: Foot Pain, Hand Pain, Joint Pain, Joint stiffness, Joint swelling, Joint Tenderness, Leg Pain Skin: Denies: Dryness, Jaundice, Pruritis, Rash Neurological: Reports: Tingling - Tingling in both arms lasting 15 minutes today. Denies: Blurred vision, Double vision, Change in Speech, Slurred speech, Difficulty swallowing, Focal weakness, Headaches, Numbness, Tremor Psychiatric: Denies: Anxiety, Depression, Homicidal Ideations, Suicidal Ideations Endocrine: Denies: Change in Body Habitus, Heat/ Cold Intolerance, Polydipsia, Polyuria Hematologic/ Lymphatic: Denies: Adenopathy, Anemia, Easy Bruising, Easy Bleeding, Petechiae, Purpura VTE Information - Inpt Only VTE Present on Admission: No VTE Mechan Device Prophylaxis: None VTE Pharm Prophylaxis ordered?: No Reason prophylaxis not ordered:: Treatment Not Indicated - Physical Exam General: Alert, Oriented x3, Cooperative, No apparent distress HEENT: Atraumatic, PERRLA, EOMI, Normocephalic Oral: Moist Mucosa Neck: Supple, No JVD, Negative Carotid Bruits, Trachea Midline, Thyroid Normal Size and Texture Lungs: Clear to auscultation, Normal air movement, No rhonchi, No wheeze, No rales Cardiovascular: Regular rate, Regular Rhythm, Normal S1, Normal S2, No murmurs, No Ectopic Activity, PMI Normal, No rub noted, No Gallop Abdomen: Bowel Sounds Present, Soft, Non Tender Extremities: No clubbing, No cyanosis, No edema, Capillary Refill Less than 3 Seconds Skin: No rashes, No breakdown Musculoskeletal: No Tenderness to Palpation of Joints or Extremities Neurological: Cranial nerves II-XII grossly intact, Neuro grossly intact, Sensory exam intact to light touch and pain, Coordination normal Psych/Mental Status: Normal Affect, Appropriate, Alert and oriented to time, place, person, mood and affect Vital Signs Temp Pulse Resp BP Pulse Ox 97.9 F 50 L 16 156/88 H 95 09/10/18 20:15 09/10/18 20:15 09/10/18 20:15 09/10/18 20:16 09/10/18 20:15 Oxygen Delivery Method Room Air Weight: 107.864 kg Body Mass Index (BMI) 34.1 Laboratory Tests Past 24 Hrs 09/10/18 09/10/18 09/10/18 17:35 17:35 20:41 WBC 7.6 RBC 4.57 L Hgb 14.5 Hct 42.5 MCV 93.0 MCH 31.7 MCHC 34.1 RDW 11.9 RDW Differential 40.0 Plt Count 198 MPV 9.8 Immature Gran % (Auto) 0.100 Neut % (Auto) 58.9 Lymph % (Auto) 26.5 [place] % (Auto) 11.3 H Eos % (Auto) 2.5 Baso % (Auto) 0.7 Absolute Neuts (auto) 4.5 Absolute Lymphs (auto) 2.02 Total Counted Not Reportable Sodium 139 Potassium 4.0 Chloride 106 Carbon Dioxide 26.0 Anion Gap 7 BUN 13 Creatinine 0.94 Estim Creat Clear Calc 78.74 Est GFR (MDRD) Af Amer 103 Est GFR (MDRD) Non-Af 85 BUN/Creatinine Ratio 13.8 Glucose 98 Calcium 8.9 Troponin I < 0.015 < 0.015 09/10/18 23:27 WBC RBC Hgb Hct MCV MCH MCHC RDW RDW Differential Plt Count MPV Immature Gran % (Auto) Neut % (Auto) Lymph % (Auto) [place] % (Auto) Eos % (Auto) Baso % (Auto) Absolute Neuts (auto) Absolute Lymphs (auto) Total Counted Sodium Potassium Chloride Carbon Dioxide Anion Gap BUN Creatinine Estim Creat Clear Calc Est GFR (MDRD) Af Amer Est GFR (MDRD) Non-Af BUN/Creatinine Ratio Glucose Calcium Troponin I Pending Assessment/Plan All Active Problems Chest pain (Acute) #1 precordial chest pain intermittent in nature-etiology unclear, patient has several risk factors for coronary disease, he will be placed in observation status on PCU, enzymes will be cycled, he will undergo an exercise nuclear stress test tomorrow if these enzymes remain negative. #2 bilateral arm paresthesias-etiology unclear, these symptoms lasted approximately 15 minutes, no work-up at this time-if this recurs she may need imaging studies done on his cervical spine #3 type 2 diabetes #4 hyperlipidemia #5 obesity #6 hypertension Code Visit OBSV E&M: 94796 Initial observation care L3
[2018-09-11] VITALS (15 sets, daily range): BP systolic 120–147; BP diastolic 73–97; PULSE 49–68; RESP 16; TEMP 36.7–37.1; O2SAT 95–99
--- NOTE | 2018-09-11 05:55 | EKG12_ITS ---
Test Reason : AM EKG Blood Pressure : / mmHG Vent. Rate : 054 BPM Atrial Rate : 054 BPM P-R Int : 258 ms QRS Dur : 098 ms QT Int : 420 ms P-R-T Axes : 051 026 015 degrees QTc Int : 398 ms Sinus bradycardia with 1st degree A-V block Otherwise normal ECG Confirmed by ROULA DAY, PUJA ([id number]), photograph editor ILSA CHURCH ([id number]) on 09/15/2018 3:06:11 PM Referred By: Quintin Lowry Confirmed By:PUJA CELESTE MD
[2018-09-11] MEDS: 0.9% NaCl Peripheral Flush Adult/Peds IV (06:07)
[2018-09-11] MEDS: Losartan Potassium 50 MG Tablet PO (06:08)
[2018-09-11] MEDS: Aspirin E.C. 81 MG Tablet PO (06:08)
[2018-09-11 06:10] LABS: Prothrombin Time (Protime)PT. 13.2 SECONDS (11.7-14.9)
[2018-09-11 06:11] LABS: Absolute Lymphocyte Count 1.67 X10^3/ul (0.83-4.51); Absolute Neutrophil Count 3.4 X10^3/uL (2.0-7.7); Basophil# 0.03 X10^3/uL; Basophil% 0.5 % (0-1); Eosinophil# 0.17 X10^3/uL; Eosinophils% 2.8 % (0-5); Hematocrit 42.4 % (40-54); Hemoglobin 14.4 g/dl (13.0-16.5); Lymphocyte # 1.67 X10^3/ul (4.0); Lymphocyte % 27.8 % (19-41); Mean Corpuscular Hgb 31.7 pg (27.0-32.0); Mean Corpuscular Volume 93.4 fL (80-94); Mean Platelet Vol. 9.6 fl (6.2-12.0); Monocyte# 0.69 X10^3/uL; Monocyte% 11.5 % (0-10); Neutrophil # 3.44 X10^3/uL (2.7-7.7); Neutrophil % 57.2 % (47-70); Partial Thromboplast Time 33.5 Seconds (24.1-36.2); Platelet Count 191 K/mm3 (150-450); RBC Distribution Width CV 11.9 % (11.6-14.6); RBC Distribution Width SD 40.3 fl (35.1-43.9); Red Blood Count 4.54 M/mm3 (4.6-6.2)
[2018-09-11 06:22] LABS: Anion Gap 8 (5-15); BUN 11 mg/dL (7-18); BUN/Creat Ratio 12.9 RATIO (10-20); Calcium,Total 8.9 mg/dL (8.5-10.1); Chloride 109 mmol/L (98-107); Creatinine, Serum 0.85 mg/dL (0.70-1.30); EST Glomerular Filtration Rate 96 mL/min (>60); Est Glom Filt Rate - Afr Amer 116 mL/min (>60); Estimated Creatinine Clearance 87.08 ml/min; Glucose 100 mg/dL (74-106); Potassium 4.1 mmol/L (3.5-5.1); Sodium Level 143 mmol/L (136-145)
[2018-09-11 06:31] LABS: POSITIVE COUNT NO; POSITIVE DIFFERENTIAL NO; POSITIVE MORPHOLOGY NO
[2018-09-11] MEDS: metFORMIN HCl 500 MG Tablet PO (08:08)
--- NOTE | 2018-09-11 09:04 | STRESSREP ---
Stress Test Report Date: 09-11-18 Procedure: Exercise tolerance test/imaging study Indications: Chest pain Consent: Per the patient Procedure: The patient exercised on a Edilberto protocol for 6 minutes completing Stage II achieving a peak heart rate of 136 bpm (88 % predicted maximal heart rate) with a peak blood pressure 160/72 mmHg and a peak MET capacity of 7 METs. The baseline ECG demonstrated sinus bradycardia. The peak exercise ECG demonstrated approximately [address] segment depression in leads II, III, aVF, and approximately [address] segment depression in lead V6 and approximately 1 to [address] segment elevation in leads aVR and V1 with gradual resolution towards baseline in recovery. There were occasional PVCs during exercise; occasional ventricular couplets during exercise; intermittent nonsustained wide-complex tachycardia-approximately 4-5 beats-during exercise. The functional capacity was considered average. There was chest discomfort during exercise with spontaneous resolution and recovery. The examination was discontinued secondary to chest discomfort. Impression: 1. Technically adequate (percent predicted maximal heart rate greater than 85%) exercise tolerance test 2. Peak exercise ECG demonstrated approximately [address] segment depression in leads II, III, aVF, and approximately [address] segment depression in lead V6, and approximately 1 to [address] segment elevation in leads aVR and V1 with gradual resolution towards baseline in recovery 3. There were occasional PVCs during exercise; occasional ventricular couplets during exercise; intermittent nonsustained wide-complex tachycardia-approximately 4-5 beats-during exercise 4. Nuclear images pending Myocardial perfusion imaging study: Technique: The patient was injected with 14.3 mCi of technetium 99m Cardiolite and subsequently rest SPECT Cardiolite nuclear imaging was obtained in the horizontal long, vertical long, and short axis views. The patient exercised on a Edilberto protocol for 6 minutes completing Stage II achieving a peak heart rate of 136 bpm (88 % predicted maximal heart rate) with a peak blood pressure 160/72 mmHg and a peak MET capacity of 7 METs. The patient was injected with 44.6 mCi of technetium 99m Cardiolite and subsequently stress SPECT Cardiolite nuclear imaging was obtained in the horizontal long, vertical long, and short axis views. A gated Cardiolite study at peak stress was obtained. Interpretation: Rest and stress SPECT Cardiolite nuclear imaging status post realignment, normalization, and attenuation correction, demonstrates at rest the appearance of subtle diminished tracer uptake in portions of the mid to distal inferior and inferior apical segments. Status post stress there is notation of diminished absence of tracer uptake in portions of the mid to distal anteroseptal, mid to distal inferoseptal, mid to distal inferior, and apical segments. There is diminished and systolic thickening and brightening in the aforementioned areas. The gated Cardiolite study demonstrates myocardial thickening and inward wall motion. The reported LVEF is 57 %. Impression: 1. Rest and stress SPECT Cardiolite nuclear imaging demonstrate myocardial perfusion changes concerning for stress-induced myocardial ischemia involving portions of the anteroseptal, inferior septal, inferior, and apical segments. 2. The gated Cardiolite study reports an LVEF of 57 %. This note was generated with [employer] software. It may contain incorrect words, spelling, and punctuation that were not noted in checking the note before signing.
--- NOTE | 2018-09-11 09:13 | STRESSREP_ITS ---
Stress Test Report Date: 09-11-18 Procedure: Exercise tolerance test/imaging study Indications: Chest pain Consent: Per the patient Procedure: The patient exercised on a Edilberto protocol for 6 minutes completing Stage II achieving a peak heart rate of 136 bpm (88 % predicted maximal heart rate) with a peak blood pressure 160/72 mmHg and a peak MET capacity of 7 METs. The baseline ECG demonstrated sinus bradycardia. The peak exercise ECG demonstrated approximately [address] segment depression in leads II, III, aVF, and approximately [address] segment depression in lead V6 and approximately 1 to [address] segment elevation in leads aVR and V1 with gradual resolution towards baseline in recovery. There were occasional PVCs during exercise; occasional ventricular couplets during exercise; intermittent nonsustained wide-complex tachycardia- approximately 4-5 beats-during exercise. The functional capacity was considered average. There was chest discomfort during exercise with spontaneous resolution and recovery. The examination was discontinued secondary to chest discomfort. Impression: 1. Technically adequate (percent predicted maximal heart rate greater than 85%) exercise tolerance test 2. Peak exercise ECG demonstrated approximately [address] segment depression in leads II, III, aVF, and approximately [address] segment depression in lead V6, and approximately 1 [address] segment elevation in leads aVR and V1 with gradual resolution towards baseline in recovery 3. There were occasional PVCs during exercise; occasional ventricular couplets during exercise; intermittent nonsustained wide-complex tachycardia- approximately 4-5 beats-during exercise 4. Nuclear images pending Myocardial perfusion imaging study: Technique: The patient was injected with 14.3 mCi of technetium 99m Cardiolite and subsequently rest SPECT Cardiolite nuclear imaging was obtained in the horizon ricky long, vertical long, and short axis views. The patient exercised on a Edilberto protocol for 6 minutes completing Stage II achieving a peak heart rate of 136 bpm (88 % predicted maximal heart rate) with a peak blood pressure 160/72 mmHg and a peak MET capacity of 7 METs. The patient was injected with 44.6 mCi of technetium 99m Cardiolite and subsequently stress SPECT Cardiolite nuclear imaging was obtained in the horizontal long, vertical long, and short axis views. A gated Cardiolite study at peak stress was obtained. Interpretation: Rest and stress SPECT Cardiolite nuclear imaging status post realignment, normalization, and attenuation correction, demonstrates at rest the appearance of subtle diminished tracer uptake in portions of the mid to distal inferior and inferior apical segments. Status post stress there is notation of diminished absence of tracer uptake in portions of the mid to distal anteroseptal, mid to distal inferoseptal, mid to distal inferior, and apical segments. There is diminished and systolic thickening and brightening in the aforementioned areas. The gated Cardiolite study demonstrates myocardial thickening and inward wall motion. The reported LVEF is 57 %. Impression: 1. Rest and stress SPECT Cardiolite nuclear imaging demonstrate myocardial perfusion changes concerning for stress-induced myocardial ischemia involving portions of the anteroseptal, inferior septal, inferior, and apical segments. 2. The gated Cardiolite study reports an LVEF of 57 %. This note was generated with Klatcher dictation software. It may contain incorrect words, spelling, and punctuation that were not noted in checking the note before signing.
--- NOTE | 2018-09-11 09:21 | CASEMGMT ---
According to the [employer] website, the following are in-network tertiary facilities: [facility], [place], [facility], [facility], [facility], [facility], and . Laurence HEATH CM
--- NOTE | 2018-09-11 09:30 | NURSING ---
Patient leaving the floor at this time to go for cardiac cath.
--- NOTE | 2018-09-11 09:33 | ECHOCS_ITS ---
Reason For Study: Chest pain Procedure This was a 2D Doppler, Color Flow transthoracic echocardiogram. The study was technically difficult. Exam performed portable in patient room. Left Ventricle Normal size and thickness. The estimated ejection fraction is 65 %. Stage 1 diastolic dysfunction. No regional wall motion abnormalities noted. Right Ventricle Normal size and thickness. Normal systolic function. Atria Normal left atrium. Normal right atrium. Normal atrial septum. Mitral Valve The mitral valve is structurally normal. No prolapse or stenosis seen. Trivial mitral valve insufficiency. Tricuspid Valve Normal tricuspid valve. Trivial tricuspid valve insufficiency. Right ventricular systolic pressure estimated to be 18 mmHg. Aortic Valve Trisinus/trileaflet aortic valve. Mild focal aortic valve thickening. Trivial aortic valve insufficiency. Pulmonic Valve Normal pulmonic valve. Great Vessels Normal aortic root. Normal arch. Normal inferior vena cava. Inferior vena cava collapse with sniff. Pericardium/Pleural No pericardial effusion. Medication Diluted definity 4ml given slow IV push to enhance endocardial definition. MMode/2D Measurements & Calculations LVIDd: 5.4 cm IVSd: 0.83 cm Ao root diam: 4.2 cm LVIDs: 3.7 cm LVPWd: 0.96 cm RVDd: 3.5 cm FS: 30.9 % LAV(MOD-bp): 47.3 ml LA A4 area: 17.7 cm2 LA dimension(2D): 4.0 cm LAV(MOD-bp) Indexed: 21.1 ml/m2 LAV(MOD-sp2): 46.1 ml LAV(MOD-sp4): 45.4 ml RA A4 area: 16.7 cm2 Time Measurements MV dec time: 0.29 sec Doppler Measurements & Calculations MV E max bogdan: 57.2 cm/sec Lat Peak E' Bogdan: 6.4 cm/sec Med Peak E' Bogdan: 5.1 cm/sec MV A max bogdan: 79.6 cm/sec E/E' lat: 9.0 E/E' med: 11.2 MV E/A: 0.72 Ao V2 max: 125.0 cm/sec LV V1 max: 103.0 cm/sec PA V2 max: 84.6 cm/sec Ao max P.2 mmHg LV V1 max P.2 mmHg TR max bogdan: 180.9 cm/sec TR max P.1 mmHg Interpretation Summary The estimated ejection fraction is 65 %. Stage 1 diastolic dysfunction. Trivial mitral valve insufficiency. Trivial tricuspid valve insufficiency. Right ventricular systolic pressure estimated to be 18 mmHg. Trivial aortic valve insufficiency. There is no comparison study available. The study was technically difficult. Contrast injection was performed. Ordering Physician: Gianni Charlton Referring Physician: Quintin Lowry Performed By: Fernanda Saenz RDCS, RVT
--- NOTE | 2018-09-11 09:34 | PCM.CONS.C ---
Problem List (1) Abnormal stress test Status: Acute (2) Chest pain Status: Acute (3) Hypertension Status: Chronic (4) Diabetes mellitus type 2 Status: Chronic (5) Dyslipidemia Status: Chronic Reason for Consult Date of Consultation: 09/11/18 Reason for Consultation: Chest pain, abnormal stress test, hypertension, hypercholesterolemia, diabetes History of Present Illness: The patient is a 68 year old M, with a history of diabetes, moderate obesity, hypertension, hyperlipidemia, current smoker, no previous known coronary disease. Patient had a stress test about 20 years ago but no catheterization. Patient was in good health up until around 5 weeks ago when he began noticing midsternal chest pressure when he was walking up a slight incline in his neighborhood. This appeared to resolve when he stopped or walks downhill. The pain persisted, but then gradually improved however it transitioned into significant fatigue. The patient actually came to [facility] ER about 2 weeks ago and was admitted for rule out myocardial infarction due to fatigue and grogginess. Patient was to undergo a stress test but he was admitted on the weekend, and subsequently was discharged home for an outpatient stress test. Last evening, the patient had substernal chest pressure again this time radiating down both arms, and out of an abundance of caution came to the emergency room at [facility]. His EKG showed normal sinus rhythm, no acute changes. His troponins were negative x2. He was supposed to undergo an outpatient stress test today, which took place as an inpatient. Patient had a markedly abnormal stress test with dynamic EKG changes both ST segment depression and allegedly elevation although I have not seen the results, with significant anterior septal and apical ischemic findings on nuclear imaging. On further history the patient took Cialis about 1 month ago but has not used it in the past several weeks. He has no history of GI bleeding, ulcers, or surgeries coming up. [] Past Medical History Allergies/Adverse Reactions: Allergies No Known Allergies Allergy (Verified 09/10/18 17:29) Home Medications: Ambulatory Orders Medication Instructions Recorded Losartan Potassium [Cozaar] 50 mg PO DAILY 08/23/18 Simvastatin [Zocor] 20 mg PO QHS 08/23/18 Aspirin E.C. [Ecotrin] 81 mg PO DAILY@0800 09/10/18 Metformin HCl 500 mg PO DAILY 09/10/18 [place]-3 Fatty Acids/Fish Oil 1 each PO DAILY 09/10/18 [[place] 3 Fish Oil Softgel] Ranitidine [Zantac] 150 mg PO BID 09/10/18 Saw [place] 160 mg PO DAILY 09/10/18 Sildenafil Citrate [Viagra] 50 mg PO DAILY PRN 09/10/18 Past Medical History (Chronic Problems): Chronic Problems Hypertension (Chronic) Diabetes mellitus type 2 (Chronic) Dyslipidemia (Chronic) Surgical History: tonsillectomy, - - Foot surgery, right shoulder and left shoulder surgery Psychiatric History: No pertinent psych hx - *Family History Paternal History Items: Cancer - Colon cancer Maternal History Items: Cancer - Lung cancer, Diabetes Lives: Spouse/ Significant Other Smoking Status: Current some day smoker Tobacco Use: Cigarettes Alcohol: Occasional Drugs: None Subjectve: Patient laying in bed, no acute distress. Objective: Vital Signs Temp Pulse Resp BP Pulse Ox 98.4 F 57 L 16 131/80 H 96 09/11/18 09:00 09/11/18 09:00 09/11/18 09:00 09/11/18 09:00 09/11/18 09:00 Oxygen Delivery Method Room Air Weight: 237 lb 12.8 oz Body Mass Index (BMI) 34.1 Intake and Output for Last 24 Hours 09/09/18 09/10/18 09/11/18 23:59 23:59 23:59 Intake Total 1999 Balance 1999 General: Awake, Alert, Oriented x 3 HEENT: PERRL, EOMI, Sclera Non Icteric Neck: Supple, Good ROM, No Lymph Node Enlargement Lungs: Clear to auscultation Cardiovascular: Regular Rhythm, Normal S1, Normal S2, No Murmurs, No Rubs, No Gallops Vascular: No Carotid Bruits, Normal Femoral Pulses, Normal Radial Pulses, Normal Dorsalis Pedal Pulse, Normal Posterior Tibial Pulses Abdomen: Bowel Sounds Present, Soft, Non Tender, No HSM, No Organomegaly Extremities: No Cyanosis, No Clubbing, No edema Neurological: No Focal Motor or Sensory Deficit 09/10/18 17:35: WBC 7.6, RBC 4.57 L, Hgb 14.5, Hct 42.5, MCV 93.0, MCH 31.7, MCHC 34.1, RDW 11.9, RDW Differential 40.0, Plt Count 198, MPV 9.8, Immature Gran % (Auto) 0.100, Neut % (Auto) 58.9, Lymph % (Auto) 26.5, [place] % (Auto) 11.3 H, Eos % (Auto) 2.5, Baso % (Auto) 0.7, Absolute Neuts (auto) 4.5, Total Counted Not Reportable 09/10/18 17:35: Sodium 139, Potassium 4.0, Chloride 106, Carbon Dioxide 26.0, Anion Gap 7, BUN 13, Creatinine 0.94, Est GFR (MDRD) Af Amer 103, Est GFR (MDRD) Non-Af 85, BUN/Creatinine Ratio 13.8, Glucose 98, Calcium 8.9, Troponin I < 0.015 09/10/18 20:41: Troponin I < 0.015 09/10/18 23:27: Troponin I < 0.015 09/11/18 05:26: WBC 6.0, RBC 4.54 L, Hgb 14.4, Hct 42.4, MCV 93.4, MCH 31.7, MCHC 34.0, RDW 11.9, RDW Differential 40.3, Plt Count 191, MPV 9.6, Immature Gran % (Auto) 0.200, Neut % (Auto) 57.2, Lymph % (Auto) 27.8, [place] % (Auto) 11.5 H, Eos % (Auto) 2.8, Baso % (Auto) 0.5, Absolute Neuts (auto) 3.4, Total Counted Not Reportable 09/11/18 05:26: PT 13.2, INR 1.0, APTT 33.5 09/11/18 05:26: Sodium 143, Potassium 4.1, Chloride 109 H, Carbon Dioxide 26.0, Anion Gap 8, BUN 11, Creatinine 0.85, Est GFR (MDRD) Af Amer 116, Est GFR (MDRD) Non-Af 96, BUN/Creatinine Ratio 12.9, Glucose 100, Calcium 8.9 Rhythm: EKG: ECHO: Ending Stress Test: Cardiac Cath: Pending PCI: CT Surgery: Holter monitor: EPS: PPM: CXR: Chest CT Scan: Assessment/Plan 1. New onset chest pain: The patient has new onset chest pain occurring with exertion starting about 5 weeks ago, initially sought medical treatment however was subsequently discharged for an outpatient stress test given the timing of his admission about 2 weeks ago. Patient's symptoms then returned last evening, this time with radiation down into both arms and out of an abundance of caution he was admitted last evening for unstable angina, and ruled out for myocardial infarction. Patient underwent a treadmill/MPI this morning which is markedly abnormal with ST segment depression along the inferior leads, ST elevation in aVR, ST elevation in V6, and PVCs with associated wide-complex tachycardia. His imaging demonstrated significant proximal anteroseptal, apical, and inferoseptal ischemia. I recommend the patient undergo a left heart catheterization. In addition he will undergo delivery of Brilinta 180 mg x 1 now followed by 90 mg p.o. twice daily should he require any stent. The risks/benefits of the procedure including specific attention to lack of on-site surgical back-up, were thoroughly explained and the patient agrees to proceed. 2. Tobacco cessation: I strongly recommended the patient discontinue all tobacco products. 3. Patient will undergo a 2D echo Doppler to get a baseline LV function, pulmonary pressures and valvular status. 4. Hyperlipidemia: Given his diabetes and probable coronary disease requires aggressive LDL reduction. Recommend obtaining a fasting blood profile, and driving his LDL cholesterol to 70 or below. 5. Thank you very much for the opportunity to participate in the cardiac care of your patient. All questions answered. Consultation time took place between 9 AM and 9:30 AM. Code Visit Inpatient E&M: 45210 Init Hosp L2
[2018-09-11 10:14] LABS: Cholesterol 126 mg/dL (200); High Density Lipoprotein 38 mg/dL; Triglycerides 144 mg/dL; Very Low Density Lipoprotein 29 mg/dL (5-40)
--- NOTE | 2018-09-11 10:35 | CL.D_ITS ---
Patient Name: ATILIO LOERA Study Date: 09/11/2018 Performing: Atilio Charlton MD Ht: 70.07 inches 178 cm : 1950 Wt: 238.1 lbs 108 kg Age: 68 Gender: male BSA: 2.25 PROCEDURE(S) PERFORMED [id number]/LV CLINICAL PROFILE AND INDICATIONS Indications: ACS <= 24 hrs, New Onset Angina <= 2 months, Suspected CAD, Cardiac Arrythmia Heart Failure: None Stress/Imaging Date: 09/11/2018Stress Test with SPECT MPI: Positive High Risk Angina Classification Anginal Classification w/in 2 Weeks: CCS III CAD Presentations: Unstable angina. Comorbidities/Risk Factors: Hypertension Dyslipidemia Diabetes Mellitus: Diabetes Therapy: Oral CONCLUSIONS Triple vessel CAD of the LAD, DIAG and RCA with evidence of both anterior, apical, and inferior ische sid by stress/MPI. RECOMMENDATIONS ASA Indefinitely Management as per referring Adjunct Instructor Surgery consult for coronary revascularization Manual sheath removal d/w Dr Mace. d/w Dr Pal. DESCRIPTION OF PROCEDURE The patient arrived to the procedure lab. The risks and benefits of the procedure as well as a full d escription of our services here and current unavailability of surgical backup were fully explained to the patient and/or their significant other prior to the catheterization. The Timeout was completed, verifying the correct patient and procedure. The patient's procedural site was prepped and draped in the usual fashion. Local anesthetic was given subcutaneously to right groin region with Lidocaine 2%. Using a modified Seldinger technique, arterial access was obtained via the right femoral artery, a 4 Fr sheath was inserted Left Coronary Artery selective angiography was performed in multiple views us ing a 4 Fr. JL5 catheter. Right Coronary Artery selective angiography was then performed in multiple views using a 4 Fr. 3DRC catheter. Left Ventriculography was performed in CURRY projection using a 4 Fr . Pigtail catheter. LV to AO pullback pressures were then recorded.The arterial sheath was pulled and manual compression applied until hemostasis is achieved. CORONARY ANGIOGRAPHY DOMINANCE: Right Dominant LEFT HEART ASSESSMENT Left Ventricular Ejection Fraction: by LV Gram 65 % Normal LV wall motion Normal Left Ventricular systolic function LEFT MAIN: Angiographically normal LEFT ANTERIOR DESCENDING ARTERY: PROX LAD: 85 % Stenosis DIAGONAL 1: Mid - 75 % Stenosis CIRCUMFLEX ARTERY: Mild luminal irregularities less than 30% RIGHT CORONARY ARTERY: MID RCA: 85 % Stenosis DISTAL RCA: is occluded COLLATERAL FLOW: Collateral flow from Left to Right COMPLICATIONS No Complications PROCEDURE MEDICATIONS Oxygen: 2 L/min via nasal cannula Baby Aspirin (81mg) 3 Tabs PO 09/11/2018 09:44:40 Brilinta 180 mg PO @ 09/11/2018 09:44:40 SUMMARY OF HEMODYNAMIC DATA Time AIR REST ECG 09:49:53 AO 130/73 (100) SA 10:05:23 LV 139/-22, 10 10:12:41 LV 149/-24, 9 10:12:48 LVp 149/-26, 8 10:12:53 AOp 131/72 (98) 10:12:58 Signed By Atilio Charlton MD On 09/11/2018 10:34:43 Atilio Charlton MD
[2018-09-11] MEDS: 0.9% Normal Saline 1,000 ML 150 ML IV (10:45)
--- NOTE | 2018-09-11 13:02 | PCM.DC.SUM ---
<Mauricio Huitron - Last Filed: 09/11/18 13:02> Discharge Date and Diagnosis Date of Admission: 09/10/18 Date of Discharge: 09/11/18 - Primary Discharge Diagnosis Active and Suspected Problems (Last Updated 09/11/18 @ 10:48 by Lluvia Luther) Triple vessel CAD DMt2 with obesity HTN HLD - Secondary Discharge Diagnosis Chronic Problems (Last Updated 09/11/18 @ 10:48 by Lluvia Luther) Hypertension (Chronic) Diabetes mellitus type 2 (Chronic) Dyslipidemia (Chronic) Hospital Course and Treatment Imaging Results: RAD/Chest 1 View (Portable) IMPRESSION: Stable nonspecific right basilar opacities which may be secondary to a confluence of shadows however cannot exclude underlying atelectasis and/or evolving pneumonia. Stress test: Impression: 1. Rest and stress SPECT Cardiolite nuclear imaging demonstrate myocardial perfusion changes concerning for stress-induced myocardial ischemia involving portions of the anteroseptal, inferior septal, inferior, and apical segments. 2. The gated Cardiolite study reports an LVEF of 57 %. This note was generated with [employer] dictation software. It may contain incorrect words, spelling, and punctuation that were not noted in checking the note before signing. Left heart cath: CONCLUSIONS Triple vessel CAD of the LAD, DIAG and RCA with evidence of both anterior, apical, and inferior ischemia by stress/MPI. Consults: Cardiology - Zoltan Operations: None Procedures: Cardiac catheterization, Stress test Summary of Care Provided: Hospital course: The patient is a 68 year old M with pmhx of DMt2, obesity, HTN, HLD, who presented to the ER with c/o chest pain described as left-sided pressure associated with bilateral arm tingling, worse with exertion better at rest. He had been planning for an outpatient stress test however with the new tingling in his arms he came to the emergency room. EKG did not show any acute changes, troponin was negative. He was admitted to the PCU and placed on telemetry. Troponin was negative x3. The following morning he underwent a stress test which was positive for ischemia. He was taken for heart catheterization which revealed triple-vessel disease. Is recommended that he be transferred to a tertiary facility for a probable CABG. The patient was agreeable. He had no symptoms the following day. He was accepted at [facility] and was transferred in stable condition when bed became available. This patient was seen by Mauricio Huitron PA-C under the supervision of Doctor Rodri. [] - Physical Exam General: Alert, Oriented x3, Cooperative HEENT: Atraumatic, PERRLA, EOMI, Normocephalic Neck: Supple, No JVD, Negative Carotid Bruits Lungs: Clear to auscultation, Normal air movement Cardiovascular: Regular rate, No murmurs Abdomen: Bowel Sounds Present, Soft, Non Tender Extremities: No edema, Capillary Refill Less than 3 Seconds Skin: No rashes, No breakdown Musculoskeletal: No Tenderness to Palpation of Joints or Extremities Neurological: Cranial nerves II-XII grossly intact Psych/Mental Status: Normal Affect, Appropriate Vital Signs Temp Pulse Resp BP Pulse Ox 98.0 F 50 L 16 120/77 98 09/11/18 10:40 09/11/18 11:40 09/11/18 11:40 09/11/18 11:40 09/11/18 10:40 Oxygen Delivery Method Room Air Weight: 237 lb 12.8 oz Body Mass Index (BMI) 34.1 Intake and Output for Last 24 Hours 09/09/18 09/10/18 09/11/18 23:59 23:59 23:59 Intake Total 1999 720 / 720 Balance 1999 720 / 720 Laboratory Tests Past 24 Hrs 09/10/18 09/10/18 09/10/18 17:35 17:35 20:41 WBC 7.6 RBC 4.57 L Hgb 14.5 Hct 42.5 MCV 93.0 MCH 31.7 MCHC 34.1 RDW 11.9 RDW Differential 40.0 Plt Count 198 MPV 9.8 Immature Gran % (Auto) 0.100 Neut % (Auto) 58.9 Lymph % (Auto) 26.5 [place] % (Auto) 11.3 H Eos % (Auto) 2.5 Baso % (Auto) 0.7 Absolute Neuts (auto) 4.5 Absolute Lymphs (auto) 2.02 Total Counted Not Reportable PT INR APTT Sodium 139 Potassium 4.0 Chloride 106 Carbon Dioxide 26.0 Anion Gap 7 BUN 13 Creatinine 0.94 Estim Creat Clear Calc 78.74 Est GFR (MDRD) Af Amer 103 Est GFR (MDRD) Non-Af 85 BUN/Creatinine Ratio 13.8 Glucose 98 Calcium 8.9 Troponin I < 0.015 < 0.015 Triglycerides Cholesterol LDL Cholesterol VLDL Cholesterol HDL Cholesterol 09/10/18 09/11/18 09/11/18 23:27 05:26 05:26 WBC 6.0 RBC 4.54 L Hgb 14.4 Hct 42.4 MCV 93.4 MCH 31.7 MCHC 34.0 RDW 11.9 RDW Differential 40.3 Plt Count 191 MPV 9.6 Immature Gran % (Auto) 0.200 Neut % (Auto) 57.2 Lymph % (Auto) 27.8 [place] % (Auto) 11.5 H Eos % (Auto) 2.8 Baso % (Auto) 0.5 Absolute Neuts (auto) 3.4 Absolute Lymphs (auto) 1.67 Total Counted Not Reportable PT 13.2 INR 1.0 APTT 33.5 Sodium Potassium Chloride Carbon Dioxide Anion Gap BUN Creatinine Estim Creat Clear Calc Est GFR (MDRD) Af Amer Est GFR (MDRD) Non-Af BUN/Creatinine Ratio Glucose Calcium Troponin I < 0.015 Triglycerides Cholesterol LDL Cholesterol VLDL Cholesterol HDL Cholesterol 09/11/18 09/11/18 05:26 05:26 WBC RBC Hgb Hct MCV MCH MCHC RDW RDW Differential Plt Count MPV Immature Gran % (Auto) Neut % (Auto) Lymph % (Auto) [place] % (Auto) Eos % (Auto) Baso % (Auto) Absolute Neuts (auto) Absolute Lymphs (auto) Total Counted PT INR APTT Sodium 143 Potassium 4.1 Chloride 109 H Carbon Dioxide 26.0 Anion Gap 8 BUN 11 Creatinine 0.85 Estim Creat Clear Calc 87.08 Est GFR (MDRD) Af Amer 116 Est GFR (MDRD) Non-Af 96 BUN/Creatinine Ratio 12.9 Glucose 100 Calcium 8.9 Troponin I Triglycerides 144 Cholesterol 126 LDL Cholesterol 59 VLDL Cholesterol 29 HDL Cholesterol 38 L Discharge Diet: - - As directed by receiving facility Discharge Activity: - - As directed by receiving facility Home Medications: Medications to take at Discharge Losartan Potassium [Cozaar] 50 mg PO DAILY 08/23/18 Simvastatin [Zocor] 20 mg PO QHS 08/23/18 Aspirin E.C. [Ecotrin] 81 mg PO DAILY@0800 09/10/18 Metformin HCl 500 mg PO DAILY 09/10/18 [place]-3 Fatty Acids/Fish Oil [[place] 3 Fish Oil Softgel] 1 each PO DAILY 09/10/18 Ranitidine [Zantac] 150 mg PO BID 09/10/18 Saw [place]o 160 mg PO DAILY 09/10/18 Sildenafil Citrate [Viagra] 50 mg PO DAILY PRN 09/10/18 Primary Care Physician: Chris Calhoun MD [Primary Care Provider] - Please follow up with your Primary Care Physician in: As directed Disposition: Acute care Hospital Minutes spent on discharge:: 35 Patient Condition:: Stable Medical Necessity - Tobacco Use Smoking Status: Current some day smoker Tobacco Use: Cigarettes Meaningful Use Info Meaningful Use Diagnoses (Choose all that apply): None applicable <Lary Mace - Last Filed: 09/11/18 16:00> Discharge Date and Diagnosis - Secondary Discharge Diagnosis Chronic Problems (Last Updated 09/11/18 @ 10:48 by Lluvia Luther) Hypertension (Chronic) Diabetes mellitus type 2 (Chronic) Dyslipidemia (Chronic) Hospital Course and Treatment Imaging Results: 09/11/18 09:33 Echo Complete W/ Contrast [ECHO] Routine Summary of Care Provided: Patient seen by Mauricio Huitron PA-C under my supervision The patient is a 68 year old M with past medical history as listed was admitted with a complaint of left-sided chest pain with bilateral arm tingling. He had been scheduled for outpatient stress test at the [facility] but due to this new onset of symptoms came to the ED. EKG showed no acute ST changes and troponins were negative. She had a stress test on 09/11/2018 which was positive for inferior ischemia. He went for heart cath which showed triple-vessel disease of the LAD, diagonal and RCA arteries with evidence of both anterior, apical and inferior ischemia. Decision was made to transfer patient emergently to [facility] for CABG. Patient seen and examined prior to discharge. He had no complaints and felt well. Review of systems otherwise negative. Labs and vitals reviewed. Home medication reviewed and reconciled. o/e: Vital Signs Height 5 ft 10 in Weight: 237 lb 12.8 oz Weight in Pounds 237.8 lbs Pulse Ox 96 Temperature 98.1 F Pulse Rate 60 Respiratory Rate 16 Blood Pressure [2nd BP] 156/88 Blood Pressure 147/97 Blood Pressure Position [2nd Semi-Fowlers BP] Blood Pressure Position Semi-Fowlers []General: Alert, Oriented x3, Cooperative HEENT: Atraumatic, PERRLA, EOMI, Normocephalic Neck: Supple, No JVD, Negative Carotid Bruits Lungs: Clear to auscultation, Normal air movement Cardiovascular: Regular rate, No murmurs Abdomen: Bowel Sounds Present, Soft, Non Tender Extremities: No edema, Capillary Refill Less than 3 Seconds Skin: No rashes, No breakdown Musculoskeletal: No Tenderness to Palpation of Joints or Extremities Neurological: Cranial nerves II-XII grossly intact Psych/Mental Status: Normal Affect, Appropriate Plan is for transfer to [facility] as mentioned above. - Physical Exam Vital Signs Temp Pulse Resp BP Pulse Ox 98.1 F 60 16 147/97 H 96 09/11/18 15:00 09/11/18 15:23 09/11/18 15:00 09/11/18 15:00 09/11/18 15:00 Oxygen Delivery Method Room Air Weight: 237 lb 12.8 oz Body Mass Index (BMI) 34.1 Intake and Output for Last 24 Hours 09/09/18 09/10/18 09/11/18 23:59 23:59 23:59 Intake Total 1999 Balance 1999 Laboratory Tests Past 24 Hrs 09/10/18 09/10/18 09/10/18 17:35 17:35 20:41 WBC 7.6 RBC 4.57 L Hgb 14.5 Hct 42.5 MCV 93.0 MCH 31.7 MCHC 34.1 RDW 11.9 RDW Differential 40.0 Plt Count 198 MPV 9.8 Immature Gran % (Auto) 0.100 Neut % (Auto) 58.9 Lymph % (Auto) 26.5 [place] % (Auto) 11.3 H Eos % (Auto) 2.5 Baso % (Auto) 0.7 Absolute Neuts (auto) 4.5 Absolute Lymphs (auto) 2.02 Total Counted Not Reportable PT INR APTT Sodium 139 Potassium 4.0 Chloride 106 Carbon Dioxide 26.0 Anion Gap 7 BUN 13 Creatinine 0.94 Estim Creat Clear Calc 78.74 Est GFR (MDRD) Af Amer 103 Est GFR (MDRD) Non-Af 85 BUN/Creatinine Ratio 13.8 Glucose 98 Calcium 8.9 Troponin I < 0.015 < 0.015 Triglycerides Cholesterol LDL Cholesterol VLDL Cholesterol HDL Cholesterol 09/10/18 09/11/18 09/11/18 23:27 05:26 05:26 WBC 6.0 RBC 4.54 L Hgb 14.4 Hct 42.4 MCV 93.4 MCH 31.7 MCHC 34.0 RDW 11.9 RDW Differential 40.3 Plt Count 191 MPV 9.6 Immature Gran % (Auto) 0.200 Neut % (Auto) 57.2 Lymph % (Auto) 27.8 [place] % (Auto) 11.5 H Eos % (Auto) 2.8 Baso % (Auto) 0.5 Absolute Neuts (auto) 3.4 Absolute Lymphs (auto) 1.67 Total Counted Not Reportable PT 13.2 INR 1.0 APTT 33.5 Sodium Potassium Chloride Carbon Dioxide Anion Gap BUN Creatinine Estim Creat Clear Calc Est GFR (MDRD) Af Amer Est GFR (MDRD) Non-Af BUN/Creatinine Ratio Glucose Calcium Troponin I < 0.015 Triglycerides Cholesterol LDL Cholesterol VLDL Cholesterol HDL Cholesterol 09/11/18 09/11/18 05:26 05:26 WBC RBC Hgb Hct MCV MCH MCHC RDW RDW Differential Plt Count MPV Immature Gran % (Auto) Neut % (Auto) Lymph % (Auto) [place] % (Auto) Eos % (Auto) Baso % (Auto) Absolute Neuts (auto) Absolute Lymphs (auto) Total Counted PT INR APTT Sodium 143 Potassium 4.1 Chloride 109 H Carbon Dioxide 26.0 Anion Gap 8 BUN 11 Creatinine 0.85 Estim Creat Clear Calc 87.08 Est GFR (MDRD) Af Amer 116 Est GFR (MDRD) Non-Af 96 BUN/Creatinine Ratio 12.9 Glucose 100 Calcium 8.9 Troponin I Triglycerides 144 Cholesterol 126 LDL Cholesterol 59 VLDL Cholesterol 29 HDL Cholesterol 38 L Code Visit OBSV E&M: [id number] Observation care discharge
--- NOTE | 2018-09-11 13:06 | DS.PCM_ITS ---
<Mauricio Huitron - Last Filed: 09/11/18 13:02> Discharge Date and Diagnosis Date of Admission: 09/10/18 Date of Discharge: 09/11/18 - Primary Discharge Diagnosis Active and Suspected Problems (Last Updated 09/11/18 @ 10:48 by Lluvia Luther) Triple vessel CAD DMt2 with obesity HTN HLD - Secondary Discharge Diagnosis Chronic Problems (Last Updated 09/11/18 @ 10:48 by Lluvia Luther) Hypertension (Chronic) Diabetes mellitus type 2 (Chronic) Dyslipidemia (Chronic) Hospital Course and Treatment Imaging Results: RAD/Chest 1 View (Portable) IMPRESSION: Stable nonspecific right basilar opacities which may be secondary to a confluence of shadows however cannot exclude underlying atelectasis and/or evolving pneumonia. Stress test: Impression: 1. Rest and stress SPECT Cardiolite nuclear imaging demonstrate myocardial perfusion changes concerning for stress-induced myocardial ischemia involving portions of the anteroseptal, inferior septal, inferior, and apical segments. 2. The gated Cardiolite study reports an LVEF of 57 %. This note was generated with [employer] dictation software. It may contain incorrect words, spelling, and punctuation that were not noted in checking the note before signing. Left heart cath: CONCLUSIONS Triple vessel CAD of the LAD, DIAG and RCA with evidence of both anterior, apical, and inferior ischemia by stress/MPI. Consults: Cardiology - Zoltan Operations: None Procedures: Cardiac catheterization, Stress test Summary of Care Provided: Hospital course: The patient is a 68 year old M with pmhx of DMt2, obesity, HTN, HLD, who presented to the ER with c/o chest pain described as left-sided pressure associated with bilateral arm tingling, worse with exertion better at rest. He had been planning for an outpatient stress test however with the new tingling in his arms he came to the emergency room. EKG did not show any acute changes, troponin was negative. He was admitted to the PCU and placed on telemetry. Troponin was negative x3. The following morning he underwent a stress test which was positive for ischemia. He was taken for heart catheterization which revealed triple-vessel disease. Is recommended that he be transferred to a tertiary facility for a probable CABG. The patient was agreeable. He had no symptoms the following day. He was accepted at [facility] and was transferred in stable condition when bed became available. This patient was seen by Mauricio Huitron PA-C under the supervision of Doctor Rodri. [] - Physical Exam General: Alert, Oriented x3, Cooperative HEENT: Atraumatic, PERRLA, EOMI, Normocephalic Neck: Supple, No JVD, Negative Carotid Bruits Lungs: Clear to auscultation, Normal air movement Cardiovascular: Regular rate, No murmurs Abdomen: Bowel Sounds Present, Soft, Non Tender Extremities: No edema, Capillary Refill Less than 3 Seconds Skin: No rashes, No breakdown Musculoskeletal: No Tenderness to Palpation of Joints or Extremities Neurological: Cranial nerves II-XII grossly intact Psych/Mental Status: Normal Affect, Appropriate Vital Signs Temp Pulse Resp BP Pulse Ox 98.0 F 50 L 16 120/77 98 09/11/18 10:40 09/11/18 11:40 09/11/18 11:40 09/11/18 11:40 09/11/18 10:40 Oxygen Delivery Method Room Air Weight: 237 lb 12.8 oz Body Mass Index (BMI) 34.1 Intake and Output for Last 24 Hours 09/09/18 09/10/18 09/11/18 23:59 23:59 23:59 Intake Total 1999 720 / 720 Balance 1999 720 / 720 Laboratory Tests Past 24 Hrs 09/10/18 09/10/18 09/10/18 17:35 17:35 20:41 WBC 7.6 RBC 4.57 L Hgb 14.5 Hct 42.5 MCV 93.0 MCH 31.7 MCHC 34.1 RDW 11.9 RDW Differential 40.0 Plt Count 198 MPV 9.8 Immature Gran % (Auto) 0.100 Neut % (Auto) 58.9 Lymph % (Auto) 26.5 [place] % (Auto) 11.3 H Eos % (Auto) 2.5 Baso % (Auto) 0.7 Absolute Neuts (auto) 4.5 Absolute Lymphs (auto) 2.02 Total Counted Not Reportable PT INR APTT Sodium 139 Potassium 4.0 Chloride 106 Carbon Dioxide 26.0 Anion Gap 7 BUN 13 Creatinine 0.94 Estim Creat Clear Calc 78.74 Est GFR (MDRD) Af Amer 103 Est GFR (MDRD) Non-Af 85 BUN/Creatinine Ratio 13.8 Glucose 98 Calcium 8.9 Troponin I < 0.015 < 0.015 Triglycerides Cholesterol LDL Cholesterol VLDL Cholesterol HDL Cholesterol 09/10/18 09/11/18 09/11/18 23:27 05:26 05:26 WBC 6.0 RBC 4.54 L Hgb 14.4 Hct 42.4 MCV 93.4 MCH 31.7 MCHC 34.0 RDW 11.9 RDW Differential 40.3 Plt Count 191 MPV 9.6 Immature Gran % (Auto) 0.200 Neut % (Auto) 57.2 Lymph % (Auto) 27.8 [place] % (Auto) 11.5 H Eos % (Auto) 2.8 Baso % (Auto) 0.5 Absolute Neuts (auto) 3.4 Absolute Lymphs (auto) 1.67 Total Counted Not Reportable PT 13.2 INR 1.0 APTT 33.5 Sodium Potassium Chloride Carbon Dioxide Anion Gap BUN Creatinine Estim Creat Clear Calc Est GFR (MDRD) Af Amer Est GFR (MDRD) Non-Af BUN/Creatinine Ratio Glucose Calcium Troponin I < 0.015 Triglycerides Cholesterol LDL Cholesterol VLDL Cholesterol HDL Cholesterol 09/11/18 09/11/18 05:26 05:26 WBC RBC Hgb Hct MCV MCH MCHC RDW RDW Differential Plt Count MPV Immature Gran % (Auto) Neut % (Auto) Lymph % (Auto) [place] % (Auto) Eos % (Auto) Baso % (Auto) Absolute Neuts (auto) Absolute Lymphs (auto) Total Counted PT INR APTT Sodium 143 Potassium 4.1 Chloride 109 H Carbon Dioxide 26.0 Anion Gap 8 BUN 11 Creatinine 0.85 Estim Creat Clear Calc 87.08 Est GFR (MDRD) Af Amer 116 Est GFR (MDRD) Non-Af 96 BUN/Creatinine Ratio 12.9 Glucose 100 Calcium 8.9 Troponin I Triglycerides 144 Cholesterol 126 LDL Cholesterol 59 VLDL Cholesterol 29 HDL Cholesterol 38 L Discharge Diet: - - As directed by receiving facility Discharge Activity: - - As directed by receiving facility Home Medications: Medications to take at Discharge Losartan Potassium [Cozaar] 50 mg PO DAILY 08/23/18 Simvastatin [Zocor] 20 mg PO QHS 08/23/18 Aspirin E.C. [Ecotrin] 81 mg PO DAILY@0800 09/10/18 Metformin HCl 500 mg PO DAILY 09/10/18 [place]-3 Fatty Acids/Fish Oil [[place] 3 Fish Oil Softgel] 1 each PO DAILY 09/10/18 Ranitidine [Zantac] 150 mg PO BID 09/10/18 Saw [place]worth 160 mg PO DAILY 09/10/18 Sildenafil Citrate [Viagra] 50 mg PO DAILY PRN 09/10/18 Primary Care Physician: Chris Calhoun MD [Primary Care Provider] - Please follow up with your Primary Care Physician in: As directed Disposition: Acute care Hospital Minutes spent on discharge:: 35 Patient Condition:: Stable Medical Necessity - Tobacco Use Smoking Status: Current some day smoker Tobacco Use: Cigarettes Meaningful Use Info Meaningful Use Diagnoses (Choose all that apply): None applicable <Lary Mace - Last Filed: 09/11/18 16:00> Discharge Date and Diagnosis - Secondary Discharge Diagnosis Chronic Problems (Last Updated 09/11/18 @ 10:48 by Lluvia Luther) Hypertension (Chronic) Diabetes mellitus type 2 (Chronic) Dyslipidemia (Chronic) Hospital Course and Treatment Imaging Results: 09/11/18 09:33 Echo Complete W/ Contrast [ECHO] Routine Summary of Care Provided: Patient seen by Mauricio Huitron PA-C under my supervision The patient is a 68 year old M with past medical history as listed was admitted with a complaint of left-sided chest pain with bilateral arm tingling. He had been scheduled for outpatient stress test at the [facility] but due to this new onset of symptoms came to the ED. EKG showed no acute ST changes and troponins were negative. She had a stress test on 09/11/2018 which was positive for inferior ischemia. He went for heart cath which showed triple-vessel disease of the LAD, diagonal and RCA arteries with evidence of both anterior, apical and inferior ischemia. Decision was made to transfer patient emergently to [facility] for CABG. Patient seen and examined prior to discharge. He had no complaints and felt well. Review of systems otherwise negative. Labs and vitals reviewed. Home medication reviewed and reconciled. o/e: Vital Signs Height 5 ft 10 in Weight: 237 lb 12.8 oz Weight in Pounds 237.8 lbs Pulse Ox 96 Temperature 98.1 F Pulse Rate 60 Respiratory Rate 16 Blood Pressure [2nd BP] 156/88 Blood Pressure 147/97 Blood Pressure Position [2nd Semi-Fowlers BP] Blood Pressure Position Semi-Fowlers []General: Alert, Oriented x3, Cooperative HEENT: Atraumatic, PERRLA, EOMI, Normocephalic Neck: Supple, No JVD, Negative Carotid Bruits Lungs: Clear to auscultation, Normal air movement Cardiovascular: Regular rate, No murmurs Abdomen: Bowel Sounds Present, Soft, Non Tender Extremities: No edema, Capillary Refill Less than 3 Seconds Skin: No rashes, No breakdown Musculoskeletal: No Tenderness to Palpation of Joints or Extremities Neurological: Cranial nerves II-XII grossly intact Psych/Mental Status: Normal Affect, Appropriate Plan is for transfer to [facility] as mentioned above. - Physical Exam Vital Signs Temp Pulse Resp BP Pulse Ox 98.1 F 60 16 147/97 H 96 09/11/18 15:00 09/11/18 15:23 09/11/18 15:00 09/11/18 15:00 09/11/18 15:00 Oxygen Delivery Method Room Air Weight: 237 lb 12.8 oz Body Mass Index (BMI) 34.1 Intake and Output for Last 24 Hours 09/09/18 09/10/18 09/11/18 23:59 23:59 23:59 Intake Total 1999 Balance 1999 Laboratory Tests Past 24 Hrs 09/10/18 09/10/18 09/10/18 17:35 17:35 20:41 WBC 7.6 RBC 4.57 L Hgb 14.5 Hct 42.5 MCV 93.0 MCH 31.7 MCHC 34.1 RDW 11.9 RDW Differential 40.0 Plt Count 198 MPV 9.8 Immature Gran % (Auto) 0.100 Neut % (Auto) 58.9 Lymph % (Auto) 26.5 [place] % (Auto) 11.3 H Eos % (Auto) 2.5 Baso % (Auto) 0.7 Absolute Neuts (auto) 4.5 Absolute Lymphs (auto) 2.02 Total Counted Not Reportable PT INR APTT Sodium 139 Potassium 4.0 Chloride 106 Carbon Dioxide 26.0 Anion Gap 7 BUN 13 Creatinine 0.94 Estim Creat Clear Calc 78.74 Est GFR (MDRD) Af Amer 103 Est GFR (MDRD) Non-Af 85 BUN/Creatinine Ratio 13.8 Glucose 98 Calcium 8.9 Troponin I < 0.015 < 0.015 Triglycerides Cholesterol LDL Cholesterol VLDL Cholesterol HDL Cholesterol 09/10/18 09/11/18 09/11/18 23:27 05:26 05:26 WBC 6.0 RBC 4.54 L Hgb 14.4 Hct 42.4 MCV 93.4 MCH 31.7 MCHC 34.0 RDW 11.9 RDW Differential 40.3 Plt Count 191 MPV 9.6 Immature Gran % (Auto) 0.200 Neut % (Auto) 57.2 Lymph % (Auto) 27.8 [place] % (Auto) 11.5 H Eos % (Auto) 2.8 Baso % (Auto) 0.5 Absolute Neuts (auto) 3.4 Absolute Lymphs (auto) 1.67 Total Counted Not Reportable PT 13.2 INR 1.0 APTT 33.5 Sodium Potassium Chloride Carbon Dioxide Anion Gap BUN Creatinine Estim Creat Clear Calc Est GFR (MDRD) Af Amer Est GFR (MDRD) Non-Af BUN/Creatinine Ratio Glucose Calcium Troponin I < 0.015 Triglycerides Cholesterol LDL Cholesterol VLDL Cholesterol HDL Cholesterol 09/11/18 09/11/18 05:26 05:26 WBC RBC Hgb Hct MCV MCH MCHC RDW RDW Differential Plt Count MPV Immature Gran % (Auto) Neut % (Auto) Lymph % (Auto) [place] % (Auto) Eos % (Auto) Baso % (Auto) Absolute Neuts (auto) Absolute Lymphs (auto) Total Counted PT INR APTT Sodium 143 Potassium 4.1 Chloride 109 H Carbon Dioxide 26.0 Anion Gap 8 BUN 11 Creatinine 0.85 Estim Creat Clear Calc 87.08 Est GFR (MDRD) Af Amer 116 Est GFR (MDRD) Non-Af 96 BUN/Creatinine Ratio 12.9 Glucose 100 Calcium 8.9 Troponin I Triglycerides 144 Cholesterol 126 LDL Cholesterol 59 VLDL Cholesterol 29 HDL Cholesterol 38 L Code Visit OBSV E&M: [id number] Observation care discharge
--- NOTE | 2018-09-11 15:30 | NURSING ---
report called to the RN at [facility]
== END 2018-09-11 11:04 | disposition short-term general hospital (02) ==
LOC: ED 18:12 → PCU 19:45
PROVIDERS: Internal Medicine Cardiovascular Disease; Admitting Provider Internal Medicine; Emergency Provider Emergency Medicine; Family Provider Family Medicine; PCP Family Medicine; Referring Provider Internal Medicine; Visit Provider Student in an Organized Health Care Education/Training Program
DX: R07.89 Other chest pain (principal); R06.09 Other forms of dyspnea; I10 Essential (primary) hypertension; E11.9 Type 2 diabetes mellitus without complications; F17.210 Nicotine dependence, cigarettes, uncomplicated; E78.5 Hyperlipidemia, unspecified; E66.9 Obesity, unspecified; Z68.34 Body mass index [BMI] 34.0-34.9, adult; Z71.3 Dietary counseling and surveillance; R20.2 Paresthesia of skin; R94.39 Abnormal result of other cardiovascular function study; Z79.899 Other long term (current) drug therapy; Z79.82 Long term (current) use of aspirin; Z79.84 Long term (current) use of oral hypoglycemic drugs; I25.10 Atherosclerotic heart disease of native coronary artery without angina pectoris
CPT/HCPCS: 36415; 71045; 78452; 80048; 80061; 84484; 85025; 85610; 85730; 93005; 93017; 93306; 93458; 96360; 96361; 99218; 99285; A9500; J7030; J7040; Q9957; Q9967; A4216; C1769; C1894; C8929; G0378

== ENCOUNTER 2018-10-06 10:28 | Emergency (ER) | payer MEDICARE, SELFPAY ==
[2018-10-06 10:29] VITALS: BP 109/67; PULSE 77; RESP 19; TEMP 36.3; O2SAT 96; BMI 32.3
[2018-10-06 10:47] LABS: Mucous, Urine 0 SEEN /hpf (<or=2+)
[2018-10-06 10:48] LABS: Color, Urine Yellow (Yellow); Glucose, Dipstick Normal (Normal); Ketone-Dipstick 5 mg/dl (Negative); Leukocyte Esterase-Dipstick 500 /ul (Negative); Nitrite-Dipstick Positive (Negative); Occult Blood-Urine 250 /ul (Negative); Protein-Dipstick 100 mg/dl (Negative); Specific Gravity, Urine 1.015 (1.002-1.030); Urine Bilirubin Dipstick Negative (Negative); Urine Clarity Turbid (Clear); Urine Urobilinogen 1 mg/dl (Normal)
[2018-10-06 10:55] LABS: Bacteria 3+ /hpf (None Seen); Red Blood Cells-Urine 5-10 SEEN /hpf (0-5); Squamous Epithelial Cells - UA 0-5 SEEN /hpf (0-5); White Blood Cells 50-100 SEEN /hpf (0-5)
[2018-10-06] MEDS: 0.9% Normal Saline 1,000 ML 150 ML IV (13:17)
[2018-10-06] MEDS: Ceftriaxone 1 GM/50 ML BAG IV (13:17)
[2018-10-06] MEDS: Acetaminophen 500 MG Tablet 1000 MG PO (13:34)
[2018-10-06 13:36] LABS: Absolute Lymphocyte Count 0.79 X10^3/ul (0.83-4.51); Absolute Neutrophil Count 13.7 X10^3/uL (2.0-7.7); Basophil# 0.02 X10^3/uL; Basophil% 0.1 % (0-1); Eosinophil# 0.02 X10^3/uL; Eosinophils% 0.1 % (0-5); Hematocrit 39.3 % (40-54); Lymphocyte # 0.79 X10^3/ul (4.0); Mean Corp Hgb Conc 33.1 g/gl (32-36); Mean Corpuscular Hgb 30.4 pg (27.0-32.0); Mean Corpuscular Volume 91.8 fL (80-94); Mean Platelet Vol. 9.6 fl (6.2-12.0); Monocyte# 1.23 X10^3/uL; Monocyte% 7.8 % (0-10); Neutrophil # 13.71 X10^3/uL (2.7-7.7); Neutrophil % 86.8 % (47-70); Platelet Count 297 K/mm3 (150-450); RBC Distribution Width CV 11.5 % (11.6-14.6); RBC Distribution Width SD 38.1 fl (35.1-43.9); Red Blood Count 4.28 M/mm3 (4.6-6.2); White Blood Count 15.8 K/mm3 (4.4-11.0)
[2018-10-06 13:39] LABS: POSITIVE COUNT NO; POSITIVE DIFFERENTIAL NO; POSITIVE MORPHOLOGY NO
[2018-10-06 13:45] LABS: Anion Gap 6 (5-15); BUN 13 mg/dL (7-18); BUN/Creat Ratio 14.5 RATIO (10-20); Calcium,Total 9.1 mg/dL (8.5-10.1); Chloride 101 mmol/L (98-107); EST Glomerular Filtration Rate 90 mL/min (>60); Est Glom Filt Rate - Afr Amer 108 mL/min (>60); Estimated Creatinine Clearance 82.24 ml/min; Glucose 127 mg/dL (74-106); Potassium 4.3 mmol/L (3.5-5.1); Sodium Level 133 mmol/L (136-145)
--- NOTE | 2018-10-06 14:43 | ED.VISSUMM ---
- ER Visit Summary Date of Service: 10/06/18 Chief Complaint: Urinary frequency History of Present Illness: The patient is a 68 M who had a cardiac bypass 3 weeks ago. Patient reports urinary frequency and burning since last evening. He is only able to urinate approximately 10 cc at a time. He feels like is not emptying his bladder. He has not had fever or chills. Physical Examination: Vital signs unremarkable. Patient lying in bed no acute distress. Heart is regular rate and rhythm. Lung sounds are clear. Abdomen is soft with mild suprapubic tenderness. No guarding or rebound. Test Results: CBC was a white count of 15.8 with 86% neutrophils. Chemistry studies unremarkable. Urinalysis is positive for nitrites with 50-100 white cells and 3+ bacteria. Urine culture was sent. Emergency Department Course and Treatment: Huang catheter was placed. 200+ cc was initially drained. Patient was given Tylenol here along with IV Rocephin. On repeat evaluation patient is resting comfortably. He will be discharged with a prescription for Cipro and a leg bag will be provided. He is to have his catheter removed in 5 days. He was given return instructions. Treatment Plan: [] Disposition: Discharge Impression: Cystitis with urinary retention This note was generated with [employer] dictation software. It may contain incorrect words, spelling, and punctuation that were not noted in review of the chart prior to signing ED Disposition - Plan for ED Patient: Disposition: Home or Assisted Living Instructions: URINARY RETENTION, Male, Bladder Infection, Male (Adult) Prescriptions: Ciprofloxacin [Cipro] 500 mg PO BID #14 tab Prescription Printed Referrals: Chris Calhoun MD [Primary Care Provider] - 5-7 Days Marck Barnhart MD [STAFF PHYSICIAN] - 5-7 Days
== END 2018-10-06 14:59 | disposition home or self-care (01) ==
PROVIDERS: Emergency Provider Emergency Medicine; Family Provider Family Medicine; PCP Family Medicine
DX: N30.90 Cystitis, unspecified without hematuria (principal); R33.9 Retention of urine, unspecified; I25.10 Atherosclerotic heart disease of native coronary artery without angina pectoris; I10 Essential (primary) hypertension; Z95.1 Presence of aortocoronary bypass graft; Z79.82 Long term (current) use of aspirin; Z79.899 Other long term (current) drug therapy; Z72.0 Tobacco use
CPT/HCPCS: 51702; 80048; 81001; 85025; 87086; 87088; 87186; 96365; 96366; 99285

== ENCOUNTER → 2018-11-04 12:02 | Outpatient (CLI) | payer MEDICARE, SELFPAY ==
[2018-10-06 10:29] VITALS: BMI 32.3
--- NOTE | 2018-11-04 12:38 | CR.HP_ITS ---
CR - History & Physical - General Arrival date:: 11/04/18 Arrival time:: 12:38 Date of Referral:: 09/16/18 Date of CR Evaluation:: 11/04/18 Referring Physician: DEBI CARDOLOGIST / JALEESA SURGEON Primary Diagnosis: CABG 3 VESSEL DISEASE - History of Present Cardiac Event Onset Date: Enter Onset Date of cardiac illnesses in Comment field below Coronary Artery Bypass Graft:: Yes - 09/16/2018 Interventions with present event:: LEFT HEART CATH REVEALED 3 VESSEL DISEAS TRANSFER TO DR. LAZCANO FOR CABG. Were there any complications?: UTI POST OPERATIVE - Medications Home Medications: Ambulatory Orders Medication Instructions Recorded Metformin HCl 500 mg PO DAILY 09/10/18 [place]-3 Fatty Acids/Fish Oil 1 ea PO DAILY 09/10/18 [[place] 3 Fish Oil Softgel] Ranitidine [Zantac] 150 mg PO BID 09/10/18 Saw [place] 160 mg PO DAILY 09/10/18 Sildenafil Citrate [Viagra] 50 mg PO DAILY PRN 09/10/18 Metoprolol Tartrate [Lopressor 50 mg PO BID 10/06/18 (beta yudi)] acetaminophen 325 mg tablet 650 mg PO Q4H PRN tab 10/29/18 aspirin 81 mg tablet,delayed 81 mg PO DAILY@0800 tab 10/29/18 release atorvastatin 40 mg tablet 40 mg PO QHS 10/29/18 calcium carbonate 500 mg calcium 1,000 mg PO BID tab 10/29/18 (1,250 mg) tablet lisinopril 2.5 mg tablet 2.5 mg PO QHS tab 10/29/18 melatonin 3 mg tablet 3 mg PO HS PRN 10/29/18 polyethylene glycol 3350 17 17 g PO DAILY PRN 10/29/18 gram/dose oral powder sennosides 8.6 mg-docusate sodium 1 tab PO BID PRN 10/29/18 50 mg tablet - Allergies Allergies/Adverse Reactions: Allergies poison princess extract Allergy (Severe, Verified 10/29/18 13:06) rash - Sleep Disorder Evaluation Hx of Sleep Apnea: No Do you snore loudly (louder than talking or can be heard through closed doors)?: Yes - OCCASIONALLY BUT NOT ROUTINELY. Do you often feel tired/ fatigued/ sleepy during daytime?: Yes - ONLY SINCE THE SURGERY, LAST 4 DAYS HAS NOT HAD TO NAP SINCE SURGERY. 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 History of left heart catheterization (Acute) Onset Date: 09/11/18 Z98.890 Triple vessel CAD of the LAD, DIAG and RCA with evidence of both anterior, apical, and inferior ischemia by stress/MPI. Atherosclerotic heart disease of [place] coronary artery with other forms of angina pectoris (Acute) I25.118 Triple vessel CAD of the LAD, DIAG and RCA with evidence of both anterior, apical, and inferior ischemia by stress/MPI. Referred to [facility] per Dr. Charlton 09/11/2018 - Past Surgical History Surgical History: Past Surgical History (Last Reviewed 10/29/18 @ 13:04 by Lluvia Luther) S/P CABG x 3 (Chronic) Onset Date: 09/16/18 Z95.1 MORALES to LAD, reverse SVG to diagonal branch and reverse SVG to PDA per Dr. Lazcano, [facility] 09/16/2018. Surgical History: tonsillectomy, - - Foot surgery, right shoulder and left shou lder surgery, some minor things such as cyst removals. - Family History Summary Family History: Family History (Last Reviewed 10/29/18 @ 13:04 by Lluvia Luther) Mother Cancer Father Colon cancer Brother Renal cancer Grandfather CAD (coronary artery disease) Social History - Smoking History Smoking Status: Never smoker Hx Tobacco Use: No Hx Smoking Exposure: No - Alcohol Use Alcohol Usage: Yes - couple of drinks on weekend, beer and mixed drinks - Substance Abuse Hx Substance Use: No - Occupation Occupation (List type of work in comments):: Retired - Hobbies, Recreation, Social Activities Hobbies: Other - golfer, ride motorcycle, assistant production manager, Recreational Activities: I am able to engage in all my recreational activities, I am able to engage in most, but not all activities - feeling better everyday since surery, making progress each day. Social Environment - Status Marital Status: - Current Living Arrangements Living Environment:: Spouse - Children How many children do you have?: 2 Do any of your children live nearby?: Yes - [place], [place] - Safety Do you feel safe in your surroundings?: Yes - Assistance Do you need any assistance at home?: none Review of Systems - Review of Systems Hints: Right click = Denies ([place]). Left click = Reports ([place]) Review of Present Symptoms: Reports: Operative Discomfort - some, Dizziness/Lightheadedness - sometimes wehn I get up for a slight second., Appetite - Normal - not wuite back to normal but improving., Appetite - Special Diet - work to fig[employer] the [place] Diet., Sleep - Normal. Denies: Shortness of Breath at Rest, Shortness of Breath with Exertion, Heart Arrhythmia/Irregularities, Sexual Changes - Pain Is Patient Pain Free?: Yes Pain Location: none Pain Level: 0/10 Risk Factor Assessment - Vital Signs Temperature: 98.7 F - week ago today had Cipro for UTI Respiratory Rate: 14 Pulse Ox: 96 Blood Pressure: 112/60 Nailbeds:: pink/normal - Pulse Pulse Rate: 68 Pulse Rhythm: Regular - Hypertension How long have you been treated?: long time Blood Pressure Sitting - Left Arm: 112/60 - Blood Cholesterol/Lipids Total Cholesterol (mg/dL) Goal = less than 200 mg/dL: 126 - 09/11/2018 HDL Cholesterol (mg/dL) Goal = less than 40 mg/dL: 38 LDL Cholesterol (mg/dL) Goal = less than 70 mg/dL: 59 Triglycerides (mg/dL) Goal = less than 150 mg/dL: 144 - Diabetes Diabetic History: Type II - Onset DM Type II; hbA1c down to 6.1% this past check - Obesity Height: 5 ft 10 in Weight:: 237 lb Weight in Pounds: 237.0 lbs Body Mass Index (BMI): 34.0 Nutritional Referral for Obesity: Yes - Physical Inactivity Physical Inactivity: Reg Exercise 30 min/day - 3 miles daily around the neighborhood. - Risk Stratification Risk Guidelines: Lowest Risk: Risk Factor for Smoking, Risk Factor for Dyslipidemia, Risk Factor for Diabetes, Risk Factor for Hypertension, Risk Factor for Sedentary Lifestyle, Risk Factor for Depression, Highest Risk: Risk Factor for Obesity - For Smoking Smoking Risk Guidelines: Smoking Low Risk: None or quit greater than 6 months ago. Smoking Moderate Risk: Smoker or quit 6 months or less ago. Smoking High Risk: Smoker - For Dyslipidemia Dyslipidemia Risk Guidelines: Low Risk: Moderate Risk: High Risk: 15-25% fat 25.1-29% fat >/= 30% fat. <7% sat fat 7-9% sat fat >9% sat fat. <150 mg chol 150-299 mg chol >/= 300 mg chol. LDL <100 LDL 100-129 LDL >/= 130. Chol/HDL ratio <5.0 Chol/HDL ratio 5.0-6.0 Chol/HDL ratio >6.0. Triglycerides <100 Triglycerides 100-149 Triglycerides >/= 150 - For Diabetes Mellitus Diabetes Risk Guidelines: Diabetes Low Risk: HgA1c <6.5% and/or FBG <120. Diabetes Moderate Risk: HgA1c 6.6-7.9% and/or FBG 120-180. Diabe rsuthi High Risk: HgA1c >/= 8% and/or FBG >180 - For Obesity/Overweight Obesity/Overweight Risk Guidelines: Obesity Low Risk: BMI <25.0. Obesity Moderate Risk: BMI 25-29.9. Obesity High Risk: BMI >/= 30.0 - For Hypertension Hypertension Risk Guidelines: Hypertension Low Risk: Systolic <120 and Diastolic <80. Hypertension Moderate Risk: Systolic 120-139 and Diastolic 80-89. Hypertension High Risk: Systolic >/= 140 and Diastolic >/= 90 - For Sedentary Lifestyle Sedentary Lifestyle Risk Guidelines: Sedentary Lifestyle Low Risk: >/= 1,500 kcal/week. Sedentary Lifestyle Moderate Risk: 700-1,499 kcal/week. Sedentary Lifestyle High Risk: < 700 kcal/week - For Depression Depression Risk Guidelines: Depression Low Risk: Not clinically depressed. Depression Moderate Risk: Mildly depressed. Depression High Risk: Clinically depressed - Family History Family History: Family History (Last Reviewed 10/29/18 @ 13:04 by Lluvia Luther) Mother Cancer Father Colon cancer Brother Renal cancer Grandfather CAD (coronary artery disease) Motivation - Motivation to Participate On a scale of 1 to 10, how prepared are you to commit to attending program?: 10 What do you see as barriers to successfully being able to complete the program?: none What do you see as the benefits of succesfully completing the program? In other words, what do you hope to get out of participating in the program?: be around longer and to be healthier. Are there issues you are dealing with that will interfere with completing the program?: none Do you have a spouse or signficant other, family or friends who will help support you to complete the program?: yes
[2018-11-04 12:53] VITALS: BP 112/60; PULSE 68; RESP 14; TEMP 37.1; O2SAT 96; BMI 34.0
--- NOTE | 2018-11-04 14:18 | CR.ITP_ITS ---
General Information - General Information Admitting Diagnosis: CABG X 3 VESSEL BYPASS - Education/Goals Barriers to Learning: None Individual Counseling: Initial Assessment: Abnormal Cholesterol Levels, High Blood Pressure, Overweight/Obesity, Diabetes Cardiac Rehabilitation Goals: 1. Maintain the individual as the primary focus of care. 2. To improve the patient's quality of life. 3. Identification of cardiac risk factors and provide cardiac risk factor management. 4. Enhance the psychosocial status of the patient. 5. Reconditioning enough to allow the patient to resume customary activities. 6. Control symptoms of cardiac disease Scale for measuring improvement of personal goals: Enter appropriate number in Comments. 2 = Unchanged. 3 = Slightly Better. 4 = Moderate Improvement. 5 = Met my Goal Personal Goals: Initial Assessment: Improve energy level, Participate in home exercise program, Get back to work, or to resume activities faster, Improve knowledge of cardiac disease, Improve muscle strength and endurance, Improve diet and eating habits (eat healthier), Control risk factors (learn risk factor modification) Exercise - Initial Assessment - Visit Date of Eval: 11/04/18 Session #:: 0 - STARTING 11/05/2018 - Stages of Change Stages of Change:: Action - Physician Prescribed Exercise Modalities: Treadmill, Airdyne, NuStep Frequency (days/week): 3x/week for 12 weeks [36 sessions] Duration (Minutes):: 30-45 Intensity: 60-80% age predicted maximum heart rate reserve METs - Progression: 0.5-1.0 MET, RPE 11-14 WEEK: 2.5 Target Heart Rate:: 100-130 - Hypertension Do any of the following apply?: Yes Resting Blood Pressure:: 120/76 - Intervention Home Exercise/Activity Goal:: Moderate Exercise 30 min/day x 5 days/wk - Education Goals:: Warm-up, RPE JUDITH Scale, S/S, Safe Exercise, Self-Monitoring - Exercise Program Goals Exercise Program Goals: Aerobic Activity >30 min Nutrition - Initial Assessment - Program Goals Nutrition Program Goals: LDL <70. Total Cholesterol <200. HDL >45. Triglycerides <150. HgbA1C <7%. BMI <25 - Visit Date of Assessment:: 11/04/18 - Stages of Change Stages of Change:: Action - Lipids Total Cholesterol (mg/dL) Goal = less than 200 mg/dL: 126 - .19 HDL Cholesterol (mg/dL) Goal = less than 45 mg/dL: 38 LDL Cholesterol (mg/dL) Goal = less than 70 mg/dL: 59 Triglycerides (mg/dL) Goal = less than 150 mg/dL: 144 - Diabetes Diabetes:: Yes Fasting blood glucose:: 987 - [place] DM TYPE II Insulin: No Non-Insulin Dependent?: Yes - METFORMIN LAST hBA1c was 6.1% Do you monitor your blood sugar at home?: No - Weight Management Height: 5 ft 10 in Weight:: 237 lb Body Fat %:: 34.1 - structured weight loss porogram referral - Intervention Referral to dietitian:: Yes Referral to Diabetic Clinic:: Yes Will attend diet classes:: Yes - Education Gave educational materials for:: Signs & symptoms of hypoglycemia, Relate d iabetes to coronary artery disease, Healthy eating Tobacco - Initial Assessment - Program Goals Tobacco Program Goals: Complete smoking cessation. Attend education classes. Improve Knowledge Test score - Stage of Change Stages of Change:: Action - Learning Barriers Learning Barriers: Ready to Learn - Family Support Do you have family support?: Yes - Tobacco Use Tobacco Use: Non-smoker Do you use smokeless tobacco?: No - Intervention Smoking Cessation Referral:: No Individual Education/Counseling:: No Education Schedule Given:: Yes - Education Attended class for:: Treating Heart Disease, How The Heart Works, What it means to have Heart Disease, How Coronary Artery Disease is Diagnosed, Heart Procedures, What Heart Medications Do, Risk Factors & Modifications, Living an Active Life, Nutrition, Emotions & Heart Disease, Stress Management & Relaxation, Sleep Disorders & Heart Disease Psychosocial - Initial Assess - Target Goals Target Goals: Assess presence or absence of depression. Using a valid screening tool, maximizes coping skills. Positive support system - Stages of Change Stages of Change:: Action - Psychosocial Test Tool Used:: HANDS Depression Questionnaire - Intervention PS - Interventions: Yes Attend Stress Management Classes, Yes Uses Stress Management Skills, No Referral to Mental Health, No Referral to [facility] Case Management, No Referral to Physician - Education Gave educational materials for:: Coping techniques, Signs & symptoms of depression, Stress management, Relaxation techniques - Patient/Program Goal Preventative Medication(s):: Aspirin, ABI inhibitor, Clopidogrel, Beta yudi, Statin/lipid - Assistive Devices Assistive Devices:: None Fall Risk Assessed:: Yes Patient Health Questionnaire Initial Assessment 1. Little interest or pleasure in doing things: Not at all 2. Feeling down, depressed, or hopeless: Not at all 3. Trouble falling or staying asleep, or sleeping too much: Several days 4. Feeling tired or having little energy: Several days 5. Poor appetite or overeating: Not at all 6. Feeling bad about yourself -- or that you are a failure or have let yourself or your family down: Not at all 7. Trouble concentrating on things, such as reading the newspaper or watching television: Not at all 8. Moving or speaking so slowly that other people could have noticed. Or the opposite - being so fidgety or restless that you have been moving around a lot more than usual: Not at all 9. Thoughts that you would be better off , or of hurting yourself in some way: Not at all How difficult have these problems made it for you to do your work, take care of things at home, or get along with other people?: Not difficult at all Total Score: 2 JEREMIAS-Q SV Test - Statements CAD is a disease of the arteries in the heart: True Examples of risk factors for heart disease: True Angina is chest pain or discomfort: I Don't Know The benefits of resistance training include: True Eating more meat and dairy products: False Anti-platelet medications such as aspirin are important: True The only effective way to manage stress: False An exercise warm-up slowly increases heart rate: True Prepared, processed foods usually have high sodium: True Depression is common after a heart attack: True The statin medications lower cholesterol: True To control blood pressure, lower the amount of sodium: True If someone gets chest discomfort during walking: False Transfats are partially hydrogenated vegetable oils: True Sleep apnea that is not treated increases the risk: I Don't Know To control cholesterol, one should become a vegetarian: False Someone knows if he/she is exercising at the right level: True Diabetes cannot be prevented with exercise & health eating: False Stress is a large risk for heart attack: True A diet that can help lower blood pressure is rich in: True - Total Score Total Correct Responses: 17 Self-Efficacy Initial Assessment We would like to know how confident you are in doing certain activities. Please select your confidence level for:: Select your confidence level for the following using the scale 1-10 where 1 is not at all confident and 10 is totally confident. Your score is the average of all 6 responses. Fatigue: How confident are you that you can keep the fatigue caused by your disease from interfering with the things you want to do? Select Number: 9 Physical Discomfort or Pain: How confident are you that you can keep the physical discomfort or pain of your disease from interfering with the things you want to do? Select Number: 9 Emotional Distress: How confident are you that you can keep the emotional distress caused by your disease from interfering with the things you want to do? Select Number: 9 Other Symptoms or Health Problems: How confident are you that you can keep other symptoms or health problems from interfering with the things you want to do? Select Number: 9 Different Tasks and Activities: How confident are you that you can do the different tasks and activities needed to manage your health condition so as to reduce your need to see a doctor? Select Number: 9 Medication: How confident are you that you can do things other than just taking medication to reduce how much your illness affects your everyday life? Select Number: 9 Total Score:: 9 Nutrition Survey - Nutrition Survey Instructions Scoring Instructions: Scoring is as follows: Yes = 1 points. No = 0 point. Patient score that is >/=12 is considered to be at potential nutritional risk and could benefit from a referral to a registered dietitian. - Nutrition Survey Initial Have you lost >10 lbs over the past 2 months without trying?: No Are you following a special diet at home for diabetes, low fat, or low salt?: Yes Are you interested in meeting with a dietitian for help understanding your diet?: No Do you eat less than 3 meals a day?: No Do you eat fatty meats (foster, sausage, ribs, etc), fried foods, desserts, large amounts of salad dressings, margarine, butter, or cheese most days?: No Do you have food allergies? [Enter types in comment field]: No Do you eat in restaurants more than 3 times a week?: No Do you season food with salt, seasoning salt, or garlic salt?: No - a little Do you used canned, boxed, frozen meals, or soups, seasoning packets?: No Total Score:: 1
[2018-11-04 14:25] VITALS: BP 120/76
== END ==
PROVIDERS: Family Provider Family Medicine; PCP Family Medicine; Referring Provider Internal Medicine Cardiovascular Disease; Visit Provider Internal Medicine Cardiovascular Disease
DX: Z95.1 Presence of aortocoronary bypass graft (principal); I25.118 Atherosclerotic heart disease of native coronary artery with other forms of angina pectoris; I10 Essential (primary) hypertension; E78.5 Hyperlipidemia, unspecified; E11.9 Type 2 diabetes mellitus without complications

== ENCOUNTER 2018-11-12 11:30 | Outpatient (RCR) | payer MEDICARE, SELFPAY ==
[2018-11-04 12:53] VITALS: BMI 34.0
== END 2018-11-12 23:59 ==
LOC: CR 11:30
PROVIDERS: Family Provider Family Medicine; PCP Family Medicine; Referring Provider Internal Medicine Cardiovascular Disease; Visit Provider Internal Medicine Cardiovascular Disease
DX: I25.118 Atherosclerotic heart disease of native coronary artery with other forms of angina pectoris (principal); Z95.1 Presence of aortocoronary bypass graft
CPT/HCPCS: 93798

== ENCOUNTER 2018-12-12 11:30 | Outpatient (RCR) | payer MEDICARE, SELFPAY ==
[2018-11-04 15:11] VITALS: BMI 32.3
--- NOTE | 2018-12-03 12:27 | PCM.CR.ITP ---
Exercise - 30-day Assessment - Visit Date of Eval: 12/03/18 Session #:: 12 - Stages of Change Stages of Change:: Action - Physician Prescribed Exercise Modalities: Treadmill, Rower, Airdyne, NuStep Frequency (days/week): 3 Duration (Minutes):: 30-45 Intensity: 60-80% age predicted maximum heart rate reserve METs - Progression: 0.5-1.0 MET, RPE 11-14 WEEK: 6.5 up from 4.0 Target Heart Rate:: 99-130 with max HR 112 - Hypertension Resting Blood Pressure:: 130/80 Peak Exercise Blood Pressure:: 158/82 Medication Changes:: Yes - DCd flomax - Intervention Home Exercise/Activity Goal:: Moderate Exercise 30 min/day x 5 days/wk - Education Goals:: Warm-up, RPE JUDITH Scale, S/S, Safe Exercise, Self-Monitoring - Exercise Program Goals Exercise Program Goals: Aerobic Activity >30 min Nutrition - Initial Assessment - Program Goals Nutrition Program Goals: LDL <70. Total Cholesterol <200. HDL >45. Triglycerides <150. HgbA1C <7%. BMI <25 - Diabetes Do you monitor your blood sugar at home?: No Nutrition - 30-Day Assessment - Program Goals Nutrition Program Goals: LDL <70. Total Cholesterol <200. HDL >45. Triglycerides <150. HgbA1C <7%. BMI <25 - Visit Date of Eval: 12/03/18 - Stages of Change Stages of Change:: Action - Lipids Has the patient seen the dietitian?: No - Diabetes Diabetes:: No Insulin: No Non-Insulin Dependent?: No - Weight Management Weight:: 226 lb 8 oz - Intervention Referral to dietitian:: No Referral to Diabetic Clinic:: No Will attend diet classes:: Yes - Education Attended class for:: Healthy eating Tobacco - Initial Assessment - Program Goals Tobacco Program Goals: Complete smoking cessation. Attend education classes. Improve Knowledge Test score - Learning Barriers Learning Barriers: Ready to Learn Tobacco - 30-Day Assessment - Program Goals Tobacco Program Goals: Complete smoking cessation. Attend education classes. Improve Knowledge Test score - Stage of Change Stages of Change:: Action - Learning Barriers Learning Barriers: Participates in education, Change in behavior - Family Support Do you have family support?: Yes - Tobacco Use Tobacco Use: Non-smoker Do you use smokeless tobacco?: No - Intervention Smoking Cessation Referral:: No Individual Education/Counseling:: No Education Schedule Given:: Yes - Education Attended class for:: Treating Heart Disease, How The Heart Works, What it means to have Heart Disease, How Coronary Artery Disease is Diagnosed, Heart Procedures, What Heart Medications Do, Risk Factors & Modifications, Living an Active Life, Nutrition, Emotions & Heart Disease, Stress Management & Relaxation, Sleep Disorders & Heart Disease Psychosocial - Initial Assess - Target Goals Target Goals: Assess presence or absence of depression. Using a valid screening tool, maximizes coping skills. Positive support system - Psychosocial Test Tool Used:: HANDS Depression Questionnaire - Assistive Devices Fall Risk Assessed:: Yes Psychosocial - 30-Day Assess - Target Goals Target Goals: Assess presence or absence of depression. Using a valid screening tool, maximizes coping skills. Positive support system - Stages of Change Stages of Change:: Action - Psychosocial Test Tool Used:: HANDS Depression Questionnaire - Intervention PS - Interventions: Yes Attend Stress Management Classes, Yes Uses Stress Management Skills, No Referral to Mental Health, No Referral to [facility] Case Management, No Referral to Physician - Education Attended classes for:: Coping techniques, Signs & symptoms of depression, Stress management, Relaxation techniques - Patient/Program Goal Preventative Medication(s):: Aspirin, ABI inhibitor, Clopidogrel, Beta yudi, Statin/lipid - Assistive Devices Assistive Devices:: None Fall Risk Assessed:: Yes Patient Health Questionnaire 30-Day Re-eval Assessment 1. Little interest or pleasure in doing things: Not at all 2. Feeling down, depressed, or hopeless: Not at all 3. Trouble falling or staying asleep, or sleeping too much: Not at all 4. Feeling tired or having little energy: Not at all 5. Poor appetite or overeating: Not at all 6. Feeling bad about yourself -- or that you are a failure or have let yourself or your family down: Not at all 7. Trouble concentrating on things, such as reading the newspaper or watching television: Not at all 8. Moving or speaking so slowly that other people could have noticed. Or the opposite - being so fidgety or restless that you have been moving around a lot more than usual: Not at all 9. Thoughts that you would be better off , or of hurting yourself in some way: Not at all Total Score: 0 Self-Efficacy 30-Day Re-eval Assessment We would like to know how confident you are in doing certain activities. Please select your confidence level for:: Select your confidence level for the following using the scale 1-10 where 1 is not at all confident and 10 is totally confident. Your score is the average of all 6 responses. Fatigue: How confident are you that you can keep the fatigue caused by your disease from interfering with the things you want to do? Select Number: 10 Physical Discomfort or Pain: How confident are you that you can keep the physical discomfort or pain of your disease from interfering with the things you want to do? Select Number: 10 Emotional Distress: How confident are you that you can keep the emotional distress caused by your disease from interfering with the things you want to do? Select Number: 10 Other Symptoms or Health Problems: How confident are you that you can keep other symptoms or health problems from interfering with the things you want to do? Select Number: 10 Different Tasks and Activities: How confident are you that you can do the different tasks and activities needed to manage your health condition so as to reduce your need to see a doctor? Select Number: 10 Medication: How confident are you that you can do things other than just taking medication to reduce how much your illness affects your everyday life? Select Number: 10 Total Score:: 10
[2018-12-03 12:31] VITALS: BP 130/80; BP 158/82
== END 2018-12-13 23:59 ==
LOC: CR 11:30
PROVIDERS: Family Provider Family Medicine; PCP Family Medicine; Referring Provider Internal Medicine Cardiovascular Disease; Visit Provider Internal Medicine Cardiovascular Disease
DX: I25.118 Atherosclerotic heart disease of native coronary artery with other forms of angina pectoris (principal); Z95.1 Presence of aortocoronary bypass graft
CPT/HCPCS: 93798

== ENCOUNTER → 2018-12-22 08:03 | Outpatient (CLI) | payer MEDICARE, SELFPAY ==
[2018-12-05 14:17] VITALS: BMI 32.7
[2018-12-22 09:04] LABS: Hemoglobin A1c 6.2 % (4.2-6.3)
[2018-12-22 09:13] LABS: AST(SGOT) 16 U/L (15-37); Alanine Aminotransfer ALT/SGPT 26 U/L (16-61); Albumin, Serum 3.6 g/dL (3.2-5.0); Alkaline Phosphatase 95 U/L (45-117); Anion Gap 3 (5-15); BUN 11 mg/dL (7-18); BUN/Creat Ratio 12.4 RATIO (10-20); Bilirubin, Direct 0.25 mg/dL (0.00-0.30); Chloride 106 mmol/L (98-107); Cholesterol 110 mg/dL (200); Creatinine, Serum 0.89 mg/dL (0.70-1.30); EST Glomerular Filtration Rate 91 mL/min (>60); Est Glom Filt Rate - Afr Amer 110 mL/min (>60); Globulin 3.9 g/dL (2.2-4.2); Glucose 119 mg/dL (74-106); High Density Lipoprotein 44 mg/dL; Protein, Total 7.5 g/dL (6.4-8.2); Sodium Level 140 mmol/L (136-145); Triglycerides 109 mg/dL; Very Low Density Lipoprotein 22 mg/dL (5-40)
== END ==
PROVIDERS: Family Provider Family Medicine; PCP Family Medicine; Referring Provider Internal Medicine Cardiovascular Disease; Visit Provider Internal Medicine Cardiovascular Disease
DX: E11.65 Type 2 diabetes mellitus with hyperglycemia (principal); E78.5 Hyperlipidemia, unspecified; Z95.1 Presence of aortocoronary bypass graft
CPT/HCPCS: 36415; 80048; 80061; 80076; 83036

== ENCOUNTER 2019-01-12 11:30 | Outpatient (RCR) | payer MEDICARE, SELFPAY ==
[2018-12-05 14:17] VITALS: BMI 32.7
[2018-12-14 01:03] VITALS: BP 130/80; BP 158/82
--- NOTE | 2019-01-05 11:07 | CR.ITP_ITS ---
General Information - General Information Admitting Diagnosis: CABG - Education/Goals Barriers to Learning: None Cardiac Rehabilitation Goals: 1. Maintain the individual as the primary focus of care. 2. To improve the patient's quality of life. 3. Identification of cardiac risk factors and provide cardiac risk factor management. 4. Enhance the psychosocial status of the patient. 5. Reconditioning enough to allow the patient to resume customary activities. 6. Control symptoms of cardiac disease Scale for measuring improvement of personal goals: Enter appropriate number in Comments. 2 = Unchanged. 3 = Slightly Better. 4 = Moderate Improvement. 5 = Met my Goal Exercise - 60-Day Assessment - Visit Date of Eval: 01/05/19 Session #:: 25 - Stages of Change Stages of Change:: Action - Physician Prescribed Exercise Modalities: Treadmill, Rower, Airdyne Frequency (days/week): 3 Duration (Minutes):: 30-45 Intensity: 60-80% age predicted maximum heart rate reserve METs - Progression: 0.5-1.0 MET, RPE 11-14 WEEK: 7.5 Target Heart Rate:: 99-130 Max HR 132 - Hypertension Resting Blood Pressure:: 122/84 Peak Exercise Blood Pressure:: 158/80 Medication Changes:: No - Intervention Home Exercise/Activity Goal:: Sitting Time <3 hrs/day - Education Goals:: Warm-up, RPE JUDITH Scale, S/S, Safe Exercise, Self-Monitoring - Exercise Program Goals Exercise Program Goals: Aerobic Activity >30 min, B/P <130/80 Nutrition - Initial Assessment - Program Goals Nutrition Program Goals: LDL <70. Total Cholesterol <200. HDL >45. Triglycerides <150. HgbA1C <7%. BMI <25 - Diabetes Do you monitor your blood sugar at home?: No Nutrition - 60-Day Assessment - Program Goals Nutrition Program Goals: LDL <70. Total Cholesterol <200. HDL >45. Triglycerides <150. HgbA1C <7%. BMI <25 - Visit Date of Eval: 01/05/19 - Stages of Change Stages of Change:: Action - Lipids Has the patient seen the dietitian?: No - Weight Management Weight:: 104.099 kg - Intervention Referral to dietitian:: No Referral to Diabetic Clinic:: No Will attend diet classes:: Yes - Education Attended class for:: Signs & symptoms of hypoglycemia, Signs & symptoms of hyperglycemia, Relate diabetes to coronary artery disease, Healthy eating Tobacco - Initial Assessment - Program Goals Tobacco Program Goals: Complete smoking cessation. Attend education classes. Improve Knowledge Test score - Learning Barriers Learning Barriers: Ready to Learn Tobacco - 60-Day Assessment - Program Goals Tobacco Program Goals: Complete smoking cessation. Attend education classes. Improve Knowledge Test score - Stage of Change Stages of Change:: Action - Learning Barriers Learning Barriers: Participates in education - Family Support Do you have family support?: Yes - Tobacco Use Tobacco Use: Non-smoker - Intervention Smoking Cessation Referral:: No Individual Education/Counseling:: No Education Schedule Given:: Yes - Education Attended class for:: Treating Heart Disease, How The Heart Works, What it means to have Heart Disease, How Coronary Artery Disease is Diagnosed, Heart Procedures, What Heart Medications Do, Risk Factors & Modifications, Living an Active Life, Nutrition, Emotions & Heart Disease, Stress Management & Relaxation, Sleep Disorders & Heart Disease Psychosocial - Initial Assess - Target Goals Target Goals: Assess presence or absence of depression. Using a valid screening tool, maximizes coping skills. Positive support system - Psychosocial Test Tool Used:: HANDS Depression Questionnaire - Assistive Devices Fall Risk Assessed:: Yes Psychosocial - 60-Day Assess - Target Goals Target Goals: Assess presence or absence of depression. Using a valid screening tool, maximizes coping skills. Positive support system - Stages of Change Stages of Change:: Action - Psychosocial Test Tool Used:: HANDS Depression Questionnaire - Intervention PS - Interventions: Yes Attend Stress Management Classes, Yes Uses Stress Management Skills, No Referral to Mental Health, No Referral to [facility] Case Management, No Referral to Physician - Education Attended classes for:: Coping techniques, Signs & symptoms of depression, Stress management, Relaxation techniques - Assistive Devices Assistive Devices:: None Fall Risk Assessed:: Yes Patient Health Questionnaire 60-Day Re-eval Assessment 1. Little interest or pleasure in doing things: Not at all 2. Feeling down, depressed, or hopeless: Not at all 3. Trouble falling or staying asleep, or sleeping too much: Not at all 4. Feeling tired or having little energy: Not at all 5. Poor appetite or overeating: Not at all 6. Feeling bad about yourself -- or that you are a failure or have let yourself or your family down: Not at all 7. Trouble concentrating on things, such as reading the newspaper or watching television: Not at all 8. Moving or speaking so slowly that other people could have noticed. Or the opposite - being so fidgety or restless that you have been moving around a lot more than usual: Not at all 9. Thoughts that you would be better off , or of hurting yourself in some way: Not at all How difficult have these problems made it for you to do your work, take care of things at home, or get along with other people?: Not difficult at all Total Score: 0 Self-Efficacy 60-Day Re-eval Assessment We would like to know how confident you are in doing certain activities. Please select your confidence level for:: Select your confidence level for the following using the scale 1-10 where 1 is not at all confident and 10 is totally confident. Your score is the average of all 6 responses. Fatigue: How confident are you that you can keep the fatigue caused by your disease from interfering with the things you want to do? Select Number: 10 Physical Discomfort or Pain: How confident are you that you can keep the physical discomfort or pain of your disease from interfering with the things you want to do? Select Number: 10 Emotional Distress: How confident are you that you can keep the emotional distress caused by your disease from interfering with the things you want to do? Select Number: 10 Other Symptoms or Health Problems: How confident are you that you can keep other symptoms or health problems from interfering with the things you want to do? Select Number: 10 Different Tasks and Activities: How confident are you that you can do the different tasks and activities needed to manage your health condition so as to reduce your need to see a doctor? Select Number: 10 Medication: How confident are you that you can do things other than just taking medication to reduce how much your illness affects your everyday life? Select Number: 10 Total Score:: 10
[2019-01-05 11:11] VITALS: BP 122/84; BP 158/80
== END 2019-01-12 23:59 ==
LOC: CR 11:30
PROVIDERS: Family Provider Family Medicine; PCP Family Medicine; Referring Provider Internal Medicine Cardiovascular Disease; Visit Provider Internal Medicine Cardiovascular Disease
DX: I25.118 Atherosclerotic heart disease of native coronary artery with other forms of angina pectoris (principal); Z95.1 Presence of aortocoronary bypass graft; E11.65 Type 2 diabetes mellitus with hyperglycemia; E78.5 Hyperlipidemia, unspecified
CPT/HCPCS: 36415; 80048; 80061; 80076; 83036; 93798

== ENCOUNTER 2019-01-30 11:30 | Outpatient (RCR) | payer MEDICARE, SELFPAY ==
[2018-12-05 14:17] VITALS: BMI 32.7
[2019-01-13 00:56] VITALS: BP 122/84; BP 158/80
== END 2019-02-12 23:59 ==
LOC: CR 11:30
PROVIDERS: Family Provider Family Medicine; PCP Family Medicine; Referring Provider Internal Medicine Cardiovascular Disease; Visit Provider Internal Medicine Cardiovascular Disease
DX: I25.118 Atherosclerotic heart disease of native coronary artery with other forms of angina pectoris (principal); Z95.1 Presence of aortocoronary bypass graft
CPT/HCPCS: 93798

== ENCOUNTER 2019-10-18 10:56 | Emergency (ER) | payer MEDICARE, SELFPAY ==
[2019-04-20 09:01] VITALS: BMI 33.3
[2019-10-18 10:58] VITALS: BP 188/82; PULSE 51; RESP 18; TEMP 36.5; O2SAT 98; BMI 36.0
[2019-10-18 11:26] LABS: Bedside Glucose 113 mg/dL (70-110)
--- NOTE | 2019-10-18 11:29 | EKG12_ITS ---
Test Reason : Blood Pressure : / mmHG Vent. Rate : 051 BPM Atrial Rate : 051 BPM P-R Int : 278 ms QRS Dur : 094 ms QT Int : 420 ms P-R-T Axes : 040 017 057 degrees QTc Int : 387 ms Sinus bradycardia with 1st degree A-V block Otherwise normal ECG Confirmed by MONIQUE DAY, DENICE ([id number]), development editor [employer] ([id number]) on 10/20/2019 11:03:07 AM Referred By: Confirmed By:DENICE AMAYA MD
--- NOTE | 2019-10-18 11:31 | ED.DCSUM_ITS ---
- ER Visit Summary Date of Service: 10/18/19 Chief Complaint: Dizziness, swelling, and elevated blood pressures History of Present Illness: The patient is a 69 M who presents with dizziness, swelling, and elevated blood pressures that are been getting worse over the past couple days. Patient states this is gradually gotten worse. Patient states he feels lightheaded. Patient states he just does not feel right. Patient admits to an 11 pound weight gain. Patient states his blood pressure at home was 170/97 which is high for him. Patient does take antihypertensive medication. Patient states he has been compliant with that. Patient states he has an appointment with Dr. Charlton coming up this week. Physical Examination: Vital signs are stable except for an elevated blood pressure of 188/82. Patient is afebrile. Patient is in no acute distress. Oral mucosa is pink and moist. Neck is supple. Trachea is midline. There is no JVD noted. Heart was regular rate and rhythm. Lungs are clear and equal bilaterally. Abdomen is soft. Bowel sounds are normal. There is no tenderness. There is no rebound or guarding noted. Skin is warm dry. Cranial nerves II through XII are intact. There are no focal motor or sensory deficits noted. Extremities are intact. There is no calf tenderness. There is 1+ edema of the lower extremities bilaterally. Test Results: EKG showed sinus bradycardia with a rate of 51. There are no acute ST or T wave changes. Portable chest x-ray was obtained and was normal. CBC, comprehensive metabolic profile, troponin, and BNP were obtained were all within normal limits. Urinalysis was normal. Emergency Department Course and Treatment: Patient was feeling better on reevaluation. Patient's blood pressure was improving. Patient was instructed to follow-up with his primary care physician in 5 to 7 days. Patient was also instructed to follow-up with Dr. Charlton as scheduled this week. Patient was instructed to keep a log of his blood pressures. Patient was instructed return if worse in any way. Patient understood and was agreeable with the plan. All questions were answered. Disposition: Discharge home Impression: Dizziness This note was generated with [employer] software. It may contain incorrect words, spelling, and punctuation that were not noted in review of the chart prior to signing ED Disposition - Plan for ED Patient: Disposition: Home or Assisted Living Diagnosis: Dizziness, Hypertension Instructions: ED Dizziness [facility] Referrals: Chris Calhoun MD [Primary Care Provider] - 5-7 Days Gianni Charlton MD [STAFF PHYSICIAN] - Keep Jet appointment
[2019-10-18 11:47] LABS: Absolute Lymphocyte Count 2.13 X10^3/uL (0.83-4.51); Absolute Neutrophil Count 5.1 X10^3/uL (2.0-7.7); Basophil# 0.06 X10^3/uL; Basophil% 0.7 % (0-1); Eosinophil# 0.29 X10^3/uL; Eosinophils% 3.3 % (0-5); Hematocrit 44.9 % (40-54); Hemoglobin 15.2 g/dL (13.0-16.5); Lymphocyte # 2.13 X10^3/ul (4.0); Lymphocyte % 24.5 % (19-41); Mean Corp Hgb Conc 33.9 g/dL (32-36); Mean Corpuscular Hgb 32.5 pg (27.0-32.0); Mean Corpuscular Volume 95.9 fL (80-94); Mean Platelet Vol. 9.8 fl (6.2-12.0); Monocyte# 1.05 X10^3/uL; Monocyte% 12.1 % (0-10); NRBC Flagged by Analyzer 0 % (0-5); Neutrophil # 5.12 X10^3/uL (2.7-7.7); Neutrophil % 58.9 % (47-70); Platelet Count 198 K/mm3 (150-450); RBC Distribution Width CV 11.4 % (11.6-14.6); RBC Distribution Width SD 39.8 fl (35.1-43.9); Red Blood Count 4.68 M/mm3 (4.6-6.2); White Blood Count 8.7 K/mm3 (4.4-11.0)
--- NOTE | 2019-10-18 11:48 | RAD_ITS ---
STUDY: X-RAY CHEST REASON FOR EXAM: Male, 69 years old. Chest pain TECHNIQUE: Frontal view of the chest COMPARISON: 09/10/2018 FINDINGS: The lungs are clear. There are no pleural effusions. There is no pneumothorax. The heart is normal in size. There are sternotomy wires noted. There are stable degenerative changes in the right shoulder. RAD/Chest 1 View (Portable) IMPRESSION: No acute thoracic pathology. Electronically Signed: Ruben Gao, at 12:02 EDT Tel , Service support ,
[2019-10-18 11:51] LABS: Prothrombin Time (Protime)PT. 12.3 SECONDS (11.7-14.9)
[2019-10-18 11:52] LABS: Partial Thromboplast Time 32.2 Seconds (24.1-36.2)
[2019-10-18 12:01] LABS: AST(SGOT) 22 U/L (15-37); Alanine Aminotransfer ALT/SGPT 37 U/L (16-61); Albumin, Serum 3.9 g/dL (3.2-5.0); Alkaline Phosphatase 83 U/L (45-117); Anion Gap 7 (5-15); BUN 14 mg/dL (7-18); Chloride 102 mmol/L (98-107); Creatinine, Serum 0.94 mg/dL (0.70-1.30); EST Glomerular Filtration Rate 85 mL/min (>60); Est Glom Filt Rate - Afr Amer 103 mL/min (>60); Estimated Creatinine Clearance 70.32 ml/min; Globulin 3.9 g/dL (2.2-4.2); Glucose 119 mg/dL (74-106); Potassium 4.2 mmol/L (3.5-5.1); Protein, Total 7.8 g/dL (6.4-8.2); Sodium Level 137 mmol/L (136-145)
[2019-10-18 12:05] VITALS: BP 140/89; BP 149/100; BP 150/95; PULSE 49; PULSE 58; PULSE 65
[2019-10-18 12:29] LABS: Bacteria 0 SEEN /hpf (None Seen); Mucous, Urine 0 SEEN /hpf (<or=2+); Red Blood Cells-Urine 0 SEEN /hpf (0-5); White Blood Cells 0 SEEN /hpf (0-5)
[2019-10-18 12:33] LABS: Color, Urine Yellow (Yellow); Glucose, Dipstick Normal (Normal); Ketone-Dipstick Negative (Negative); Leukocyte Esterase-Dipstick Negative /ul (Negative); Nitrite-Dipstick Negative (Negative); Occult Blood-Urine Negative /ul (Negative); Protein-Dipstick Negative (Negative); Urine Bilirubin Dipstick Negative (Negative); Urine Clarity Sl. Cloudy (Clear); Urine Urobilinogen Normal (Normal)
[2019-10-18 12:45] LABS: Squamous Epithelial Cells - UA 0-5 SEEN /hpf (0-5)
[2019-10-18 13:00] VITALS: BP 164/99; PULSE 49; RESP 15; O2SAT 96
[2019-10-18 13:55] VITALS: BP 164/92; PULSE 52; RESP 16; O2SAT 99
== END 2019-10-18 14:03 | disposition home or self-care (01) ==
PROVIDERS: Emergency Provider Emergency Medicine; PCP Family Medicine
DX: R42 Dizziness and giddiness (principal); I10 Essential (primary) hypertension; E11.9 Type 2 diabetes mellitus without complications; R60.0 Localized edema; Z95.1 Presence of aortocoronary bypass graft; Z79.84 Long term (current) use of oral hypoglycemic drugs; Z79.82 Long term (current) use of aspirin
CPT/HCPCS: 71045; 80053; 81001; 82962; 83880; 84484; 85025; 85610; 85730; 93005; 99285; A4216

== ENCOUNTER → 2019-11-09 06:44 | Outpatient (CLI) | payer MEDICARE, SELFPAY ==
[2019-10-22 10:22] VITALS: BMI 36.0
[2019-11-09 07:32] LABS: AST(SGOT) 20 U/L (15-37); Alanine Aminotransfer ALT/SGPT 28 U/L (16-61); Alkaline Phosphatase 83 U/L (45-117); Bilirubin, Direct 0.22 mg/dL (0.00-0.30); Cholesterol 123 mg/dL (200); Globulin 3.7 g/dL (2.2-4.2); High Density Lipoprotein 42 mg/dL; Protein, Total 7.7 g/dL (6.4-8.2); Triglycerides 107 mg/dL; Very Low Density Lipoprotein 21 mg/dL (5-40)
== END ==
PROVIDERS: PCP Family Medicine; Referring Provider Internal Medicine Cardiovascular Disease; Visit Provider Internal Medicine Cardiovascular Disease
DX: E78.00 Pure hypercholesterolemia, unspecified (principal)
CPT/HCPCS: 36415; 80061; 80076

== ENCOUNTER → 2020-05-31 10:25 | Outpatient (CLI) | payer MEDICARE, SELFPAY ==
[2020-05-18 11:28] VITALS: BMI 33.7
[2020-05-31 11:27] LABS: PSA,Total - Annual Screen 0.78 ng/mL (0.00-4.00)
== END ==
PROVIDERS: PCP Family Medicine; Referring Provider Urology; Visit Provider Urology
DX: Z12.5 Encounter for screening for malignant neoplasm of prostate (principal)
CPT/HCPCS: 36415; 84153; G0103

== ENCOUNTER 2020-06-14 21:51 | Emergency (ER) | payer MEDICARE, SELFPAY ==
[2020-05-18 11:28] VITALS: BMI 33.7
[2020-06-14 21:53] VITALS: BP 149/97; PULSE 63; RESP 18; TEMP 36; O2SAT 95; BMI 32.5
[2020-06-14 21:58] VITALS: PULSE 59; RESP 19; O2SAT 97
--- NOTE | 2020-06-14 22:21 | EKG12_ITS ---
Test Reason : HTN Blood Pressure : / mmHG Vent. Rate : 059 BPM Atrial Rate : 059 BPM P-R Int : 278 ms QRS Dur : 102 ms QT Int : 422 ms P-R-T Axes : 034 006 042 degrees QTc Int : 417 ms Sinus bradycardia with 1st degree A-V block Incomplete right bundle branch block Septal infarct , age undetermined Abnormal ECG Confirmed by ROULA DAY, PUJA ([id number]), editor school photograph [employer] ([id number]) on 06/20/2020 2:15:14 PM Referred By: DANIEL Confirmed By:PUJA CELESTE MD
--- NOTE | 2020-06-14 22:22 | ED.VIS.CHEST ---
History of Present Illness Chief Complaint: Hypertension Informant: Patient Onset: Hours - 1 Timing: Intermittent - x1, Lasts - 30-40 min Quality: Tightness Location: Substernal Current Severity: Gone Maximum Severity: Mild Worsened By: Nothing. Not Worsened By: Breathing Relieved By: Nothing Associated Symptoms: - - not feeling well. malaise.. Negative for: Nausea, Vomiting, Diaphoresis, Dyspnea, Cough, Fever, Lightheadedness, Palpitations Narrative: Patient states tonight he sat down in his chair and then started feeling poorly and had a hard time describing it. He remembers feeling some tingling in both of his arms but not necessarily pain, he does not recall if he definitely had tightness in his chest or not, but thinks maybe he did. It is all feeling better now. He checked his blood pressure multiple times in the last hours and he started feeling poorly, it was never low but occasionally it was high with systolic as high as around 150 but nothing higher than that. Earlier this morning it was in the 140/90 range, he had none of the symptoms of then. He had a CABG 1 or 2 years ago. When he needed that surgery, he simply was feeling very fatigued with very little exertion, abnormal for him. About a month ago he had a routine follow-up with his lead fire protection engineer, he was having none of these symptoms and they were going to see him again in 6 months. Subsequently, he was walking up some steps to his urologist, and he felt very tired very quickly, unusual for him so he talk to his PCP since his lead fire protection engineer left the area and he has not been reassigned yet, and had a nuclear treadmill stress test ordered that was performed yesterday and he found out today that it was normal. He did not feel poorly after his test yesterday. - Past Medical History (1) Atherosclerotic heart disease of [place] coronary artery with other forms of angina pectoris Status: Chronic Comment: Triple vessel CAD of the LAD, DIAG and RCA with evidence of both anterior, apical, and inferior ischemia by stress/MPI. Referred to [facility] per Dr. Charlton 09/11/2018 (2) Diabetes mellitus, type II Status: Chronic (3) Dyslipidemia Status: Chronic (4) Essential hypertension Status: Chronic (5) Hyperlipidemia Status: Chronic Past Medical History - Allergies and Home Meds Allergies/Adverse Reactions: Allergies poison princess extract Allergy (Severe, Verified 06/14/20 21:53) rash losartan Adverse Reaction (Intermediate, Verified 06/14/20 21:53) Hypotension, lightheaded lisinopril Adverse Reaction (Verified 06/14/20 21:53) Hypotension/lightheaded Primary Care Physician: Manish Pal MD [STAFF PHYSICIAN] - 1 Week if not improving (if recurrent symptoms (or your doctor)) Chris Calhoun MD [Primary Care Provider] - Surgical History: coronary bypass surgery, tonsillectomy, - - Foot surgery, right shoulder and left shoulder surgery, some minor things such as cyst removals. Lives: Spouse/ Significant Other Smoking Status: Never smoker - Family History Paternal Family History: Family History (Last Reviewed 05/18/20 @ 11:36 by Mat Ramirez NP, ACADEMIC DIRECTOR-C) Mother Cancer Father Colon cancer Brother Renal cancer Grandfather CAD (coronary artery disease) Family History: Reports: Cancer - Colon cancer Maternal Family History: Family History (Last Reviewed 05/18/20 @ 11:36 by Mat Ramirez NP, ACADEMIC DIRECTOR-C) Mother Cancer Father Colon cancer Brother Renal cancer Grandfather CAD (coronary artery disease) Family History: Reports: Cancer - Lung cancer, Diabetes Review of Systems General: Denies: Chills, Fever, Sweats Eyes: Denies: Visual changes - bilaterally, Diplopia ENT: Denies: Rhinorrhea, Sore throat Cardiovascular: Reports: Chest pain. Denies: Palpitations Respiratory: Denies: Dyspnea, Cough, Dyspnea on exertion Gastrointestinal: Denies: Abdominal pain, Nausea, Vomiting, Diarrhea, Melena, Hematochezia Genitourinary: Denies: Dysuria, Hematuria, Frequency Musculoskeletal: Denies: Back pain, Swelling, Extremity Pain Skin: Denies: Rash, Wounds Neurological: Reports: Parasthesia - both UEs. Denies: Headache, Weakness Physical Exam Vital Signs/Narrative: Vital Signs Temp Pulse Resp BP Pulse Ox 06/14/20 21:58 59 L 19 H 97 06/14/20 21:53 96.8 F L 63 18 149/97 H 95 Inital Vital Signs reviewed: Yes General: Well nourished, Well developed, No Acute Distress Head: Normocephalic, Atraumatic Eyes: Perrl, EOMI ENT: Moist mucous membranes, No rhinorrhea Neck: Supple, Nontender, No JVD Cardiovascular: Regular rate, Regular rhythm, No murmurs. Negative for: Tachycardia Respiratory: No distress, CTA bilaterally, Chest nontender Abdomen: Soft, Nontender, Nondistended, Normal bowel sounds Back: Nontender, Normal Inspection Extremities: Nontender, No edema. Negative for: Calf Tenderness Skin: Normal color, No rash, No Trauma Neurological: Alert, Oriented x3, Cranial nerves II-XII grossly intact, Normal Strength, Normal Sensation, Normal Gait Psychological: Normal affect, Normal Mood Diagnostic/Tx/Re-eval Impressions Chest X-Ray 06/14/20 22:32 IMPRESSION: Normal x-ray examination of the chest. Electronically Signed: Esteban DO Lucita at 22:43 EST Tel , Service support , 06/14/20 22:32 Chest 1 View (Portable) [RAD] Stat Laboratory Results 06/14/20 06/14/20 22:30 22:30 WBC 7.4 RBC 4.50 L Hgb 14.4 Hct 41.6 MCV 92.4 MCH 32.0 MCHC 34.6 RDW Std Deviation 38.4 RDW Coeff of Jessica 11.3 L Plt Count 197 MPV 9.7 Immature Gran % (Auto) 0.100 Neut % (Auto) 52.1 Lymph % (Auto) 31.8 Todd % (Auto) 11.5 H Eos % (Auto) 3.8 Baso % (Auto) 0.7 Absolute Neuts (auto) 3.8 Absolute Lymphs (auto) 2.34 Nucleated RBC % 0 Sodium 137 Potassium 3.8 Chloride 103 Carbon Dioxide 28.0 Anion Gap 6 BUN 14 Creatinine 0.88 Estim Creat Clear Calc 84.38 Est GFR (MDRD) Af Amer 110 Est GFR (MDRD) Non-Af 91 BUN/Creatinine Ratio 15.8 Glucose 138 H Calcium 9.0 Troponin I < 0.015 - Rhythm Strip Rhythm Strip: Sinus Rhythm Rate: 59 Ectopy: None - EKG Initial EKG Interpretation: Sinus Rhythm, No Acute Injury Pattern, AV Block - 1st deg Prior: Unchanged TALITA Risk: Age >/= 65, >/= 3RF, H/O CAD, ASA within 7 days Score: 4 - Medical Decision Making Work-up is negative including troponin. During his ED observation his blood pressure so far is remained stable, with systolics in the 140s. Patient is asymptomatic. Given his history of coronary disease/CABG, I recommend a second troponin for 3-hour delta measurement. If negative then he continues to feel well, I think it would be reasonable for him to be discharged home. GI etiologies are in the differential here, as is acute coronary syndrome which would be less risk if his delta troponin is negative. His heart score is 0, 0, 2, 2, 0 = 4. He prefers to be discharged without the second troponin. We discussed the risks and benefits, he understands and accepts the added risk, but given that he had a negative nuclear stress test yesterday, and he has the capacity to make this decision and ambulated around the department without hypoxemia or any symptoms and states he now feels great with a blood pressure of 127/65, I am comfortable allowing him to be discharged home. Close outpatient follow-up advised. ED Disposition - Plan for ED Patient: Disposition: Home or Assisted Living Diagnosis: Chest pain, unspecified Instructions: ED Chest Pain, Uncertain Cause Referrals: Chris Calhoun MD [Primary Care Provider] - Manish Pal MD [STAFF PHYSICIAN] - 1 Week if not improving (if recurrent symptoms (or your doctor))
--- NOTE | 2020-06-14 22:32 | RAD_ITS ---
STUDY: X-RAY CHEST REASON FOR EXAM: Male, 70 years old. chest pain TECHNIQUE: Single AP portable view of the chest. COMPARISON: 10/18/2019 FINDINGS: The lungs are clear and expanded. There is no demonstrated pleural abnormality. Sternal cerclage wires are present from a prior sternotomy. Normal mediastinum and steven. Normal visualized pulmonary arteries. Normal visualized aortic arch and descending thoracic aorta. Normal visualized thoracic spine. Normal visualized ribs, clavicles, and shoulders. There is no demonstrated abnormality of the visualized soft tissue structures of the upper abdomen. RAD/Chest 1 View (Portable) IMPRESSION: Normal x-ray examination of the chest. Electronically Signed: Esteban Landrum DO at 22:43 EST Tel , Service support ,
[2020-06-14 22:37] LABS: Absolute Lymphocyte Count 2.34 X10^3/uL (0.83-4.51); Absolute Neutrophil Count 3.8 X10^3/uL (2.0-7.7); Basophil# 0.05 X10^3/uL; Basophil% 0.7 % (0-1); Eosinophil# 0.28 X10^3/uL; Eosinophils% 3.8 % (0-5); Hematocrit 41.6 % (40-54); Hemoglobin 14.4 g/dL (13.0-16.5); Lymphocyte # 2.34 X10^3/ul (4.0); Lymphocyte % 31.8 % (19-41); Mean Corp Hgb Conc 34.6 g/dL (32-36); Mean Corpuscular Volume 92.4 fL (80-94); Mean Platelet Vol. 9.7 fl (6.2-12.0); Monocyte# 0.85 X10^3/uL; Monocyte% 11.5 % (0-10); NRBC Flagged by Analyzer 0 % (0-5); Neutrophil # 3.83 X10^3/uL (2.7-7.7); Neutrophil % 52.1 % (47-70); Platelet Count 197 K/mm3 (150-450); RBC Distribution Width CV 11.3 % (11.6-14.6); RBC Distribution Width SD 38.4 fl (35.1-43.9); White Blood Count 7.4 K/mm3 (4.4-11.0)
[2020-06-14 22:55] LABS: Anion Gap 6 (5-15); BUN 14 mg/dL (7-18); BUN/Creat Ratio 15.8 RATIO (10-20); Chloride 103 mmol/L (98-107); Creatinine, Serum 0.88 mg/dL (0.70-1.30); EST Glomerular Filtration Rate 91 mL/min (>60); Est Glom Filt Rate - Afr Amer 110 mL/min (>60); Estimated Creatinine Clearance 84.38 ml/min; Glucose 138 mg/dL (74-106); Potassium 3.8 mmol/L (3.5-5.1); Sodium Level 137 mmol/L (136-145)
[2020-06-14 23:30] VITALS: O2SAT 95
--- NOTE | 2020-06-14 23:30 | ED.RN ---
HR between 63-68. pt tolerated walk well. no SOB or CP. Dr. Buitrago notified
[2020-06-14 23:38] VITALS: BP 121/79; PULSE 54; RESP 16; O2SAT 98
== END 2020-06-14 23:40 | disposition home or self-care (01) ==
PROVIDERS: Emergency Provider Emergency Medicine; PCP Family Medicine
DX: R07.9 Chest pain, unspecified (principal); I25.118 Atherosclerotic heart disease of native coronary artery with other forms of angina pectoris; I10 Essential (primary) hypertension; E11.9 Type 2 diabetes mellitus without complications; E78.5 Hyperlipidemia, unspecified; Z95.1 Presence of aortocoronary bypass graft; Z79.82 Long term (current) use of aspirin; Z79.84 Long term (current) use of oral hypoglycemic drugs; Z79.899 Other long term (current) drug therapy
CPT/HCPCS: 71045; 80048; 84484; 85025; 93005; 99284; A4216

== ENCOUNTER → 2020-06-21 14:34 | Outpatient (CLI) | payer MEDICARE, SELFPAY ==
[2020-06-21 13:01] VITALS: BMI 33.3
[2020-06-21 16:22] LABS: BNP,B-Type NATRIURETIC PEPTIDE 25.7 pg/mL (0-100)
== END ==
PROVIDERS: PCP Family Medicine; Visit Provider Nurse Practitioner Family
DX: I10 Essential (primary) hypertension (principal); I25.118 Atherosclerotic heart disease of native coronary artery with other forms of angina pectoris; R06.00 Dyspnea, unspecified; Z95.1 Presence of aortocoronary bypass graft
CPT/HCPCS: 36415; 83880

== ENCOUNTER → 2020-07-11 08:44 | Outpatient (CLI) | payer MEDICARE, SELFPAY ==
[2020-06-21 13:01] VITALS: BMI 33.3
--- NOTE | 2020-07-11 08:51 | ECHOCS_ITS ---
Reason For Study: Dyspnea/SOB Procedure This was a 2D Doppler, Color Flow transthoracic echocardiogram. The study was technically difficult. Contrast injection was performed. Exam performed in department. Left Ventricle Normal LV size. Left ventricular systolic function is normal. The estimated ejection fraction is 55 %. Post operative septal motion. No evidence for diastolic dysfunction. Right Ventricle Normal RV size. Normal systolic function. Atria Normal left atrium. Normal right atrium. Agitated saline contrast study considered positive for a right to left interatrial shunt compatible with a small PFO versus ASD. Mitral Valve There is no mitral annular calcification. Normal mitral valve. Mild (1+) mitral valve insufficiency. Tricuspid Valve Normal tricuspid valve. Trivial tricuspid valve insufficiency. Right ventricular systolic pressure estimated to be 20 mmHg. Aortic Valve Trisinus/trileaflet aortic valve. Normal aortic valve. Trivial aortic valve insufficiency. Pulmonic Valve The pulmonic valve is not well visualized. Great Vessels Mildly dilated aortic root. Pericardium/Pleural No pericardial effusion. Medication Diluted definity 3ml given slow IV push to enhance endocardial definition. MMode/2D Measurements & Calculations LVIDd: 6.0 cm IVSd: 1.0 cm Ao root diam: 4.1 cm LVIDs: 4.2 cm LVPWd: 0.96 cm RVDd: 4.5 cm FS: 28.9 % LAV(MOD-bp): 50.2 ml LVAd ap4: 34.9 cm2 SV(MOD-sp4): 60.7 ml LAV(MOD-bp) Indexed: 22.1 ml/m2 EDV(MOD-sp4): 120.8 ml LAV(MOD-sp2): 55.9 ml EDV(sp4-el): 124.8 ml LAV(MOD-sp4): 41.8 ml LVAs ap4: 23.3 cm2 ESV(MOD-sp4): 60.1 ml ESV(sp4-el): 60.6 ml EF(MOD-sp4): 50.2 % EF(sp4-el): 51.5 % SV(sp4-el): 64.2 ml LA A4 area: 16.8 cm2 LA dimension(2D): 4.5 cm RA A4 area: 13.4 cm2 Doppler Measurements & Calculations MV E max bogdan: 62.9 cm/sec Lat Peak E' Bogdan: 9.2 cm/sec Med Peak E' Bogdan: 5.4 cm/sec MV A max bogdan: 71.2 cm/sec E/E' lat: 6.8 E/E' med: 11.6 MV E/A: 0.88 Ao V2 max: 101.4 cm/sec LV V1 max: 82.4 cm/sec PA V2 max: 89.8 cm/sec Ao max P.1 mmHg LV V1 max P.7 mmHg Ao V2 mean: 73.3 cm/sec Ao mean P.3 mmHg Ao V2 VTI: 23.2 cm TR max bogdan: 204.5 cm/sec TR max P.7 mmHg ECHO/Echo Complete W/ Contrast Interpretation Summary The study was technically difficult. Contrast injection was performed. Left ventricular systolic function is normal. The estimated ejection fraction is 55 %. Post operative septal motion. Mild (1+) mitral valve insufficiency. Trivial tricuspid valve insufficiency. Trivial aortic valve insufficiency. Mildly dilated aortic root. Right ventricular systolic pressure estimated to be 20 mmHg. No evidence for diastolic dysfunction. Agitated saline contrast study considered positive for a right to left interatr ial shunt compatible with a small PFO versus ASD. Consider further evaluation of atrial septal anatomy and physiology with transe sophageal echocardiogram if clinically indicated. Ordering Physician: Mat Ramirez Referring Physician: Chris Calhoun Performed By: Tabby Ramirez RDCS, RVT
== END ==
PROVIDERS: PCP Family Medicine; Referring Provider Nurse Practitioner Family; Visit Provider Nurse Practitioner Family
DX: R06.02 Shortness of breath (principal)
CPT/HCPCS: 93306; Q9957; A4216; C8929

== ENCOUNTER 2021-06-06 14:08 | Outpatient (CLI) | payer MEDICARE, SELFPAY ==
[2021-06-06 15:32] LABS: PSA,Total - Annual Screen 0.55 ng/mL (0.00-4.00)
== END 2021-06-06 23:59 | disposition home or self-care (01) ==
LOC: LAB 14:10
PROVIDERS: PCP Family Medicine; Referring Provider Registered Nurse; Visit Provider Registered Nurse
DX: Z12.5 Encounter for screening for malignant neoplasm of prostate (principal)
CPT/HCPCS: 36415; 84153; G0103

== ENCOUNTER 2021-06-28 13:41 | Outpatient (CLI) | payer MEDICARE, SELFPAY ==
--- NOTE | 2021-06-28 13:44 | ECHOD_ITS ---
Reason For Study: ASHD, aortic root dilatation. Procedure This was a 2D Doppler, Color Flow transthoracic echocardiogram. The study was technically difficult. Exam performed in department. Left Ventricle Normal LV size. Left ventricular systolic function is normal. The estimated ejection fraction is 60 %. Post operative septal motion. Diastolic function is indeterminate. Right Ventricle Normal RV size. Normal systolic function. Atria Normal left atrium. Normal right atrium. Mitral Valve There is no mitral annular calcification. Normal mitral valve. Mild (1+) mitral valve insufficiency. Tricuspid Valve Normal tricuspid valve. Trivial tricuspid valve insufficiency. Unable to estimate RV systolic pressure/pulmonary artery pressure due to technically difficult study. Aortic Valve Trisinus/trileaflet aortic valve. Normal aortic valve. Trivial eccentric aortic valve insufficiency. Pulmonic Valve The pulmonic valve is not well visualized. Great Vessels Mildly dilated aortic root. Pericardium/Pleural No pericardial effusion. MMode/2D Measurements & Calculations LVIDd: 5.6 cm IVSd: 1.0 cm Ao root diam: 4.1 cm LVIDs: 3.8 cm LVPWd: 1.0 cm RVDd: 3.9 cm FS: 32.3 % LAV(MOD-sp4): 50.7 ml LA A2C-A/L_phl: 18.3 cm2 RA A4 area: 15.6 cm2 Time Measurements MV dec time: 0.35 sec Doppler Measurements & Calculations MV E max bogdan: 52.9 cm/sec Lat Peak E' Bogdan: 10.2 cm/sec Med Peak E' Bogdan: 6.4 cm/sec MV A max bogdan: 62.8 cm/sec E/E' lat: 5.2 E/E' med: 8.3 MV E/A: 0.84 Ao V2 max: 107.1 cm/sec AI max bogdan: 404.4 cm/sec LV V1 max: 85.4 cm/sec Ao max P.6 mmHg AI max P.5 mmHg LV V1 max P.9 mmHg AI dec slope: 224.4 cm/sec2 AI P1/2t: 527.9 msec PA V2 max: 87.3 cm/sec ECHO/Echo Complete Interpretation Summary The study was technically difficult. Left ventricular systolic function is normal. The estimated ejection fraction is 60 %. Post operative septal motion. Mild (1+) mitral valve insufficiency. Trivial tricuspid valve insufficiency. Trivial eccentric aortic valve insufficiency. Mildly dilated aortic root. Unable to estimate RV systolic pressure/pulmonary artery pressure due to techni [place] difficult study. Diastolic function is indeterminate. Comment: The transthoracic echocardiogram from 07-11-2020 demonstrated the follo wing: Agitated saline contrast study considered positive for a right to left interatrial shunt compat ible with a small PFO versus ASD. Ordering Physician: Manish Pal Referring Physician: Chris Calhoun Performed By: Yu Lua, RDCS, RVT
== END 2021-06-28 23:59 | disposition home or self-care (01) ==
LOC: CVS 13:43
PROVIDERS: PCP Family Medicine; Referring Provider Internal Medicine Cardiovascular Disease; Visit Provider Internal Medicine Cardiovascular Disease
DX: I25.118 Atherosclerotic heart disease of native coronary artery with other forms of angina pectoris (principal); I77.810 Thoracic aortic ectasia
CPT/HCPCS: 93306

== ENCOUNTER → 2022-06-15 | Outpatient (CLI) | payer MEDICARE, SELFPAY | END | disposition home or self-care (01) | PROVIDERS: PCP Family Medicine; Referring Provider Registered Nurse; Visit Provider Registered Nurse | DX: Z12.5 Encounter for screening for malignant neoplasm of prostate (principal) | CPT/HCPCS: 36415; 84153; G0103 ==

== ENCOUNTER → 2022-06-19 | Outpatient (CLI) | payer MEDICARE, SELFPAY ==
--- NOTE | 2022-06-19 06:58 | CT_ITS ---
EXAM: CT ANGIOGRAPHY CHEST WITHOUT AND WITH INTRAVENOUS CONTRAST CLINICAL INDICATION: Dilated aortic root TECHNIQUE: Helically acquired angiography images were obtained of the chest without and with intravenous contrast. This CT exam was performed using one or more of the following dose reduction techniques: automated exposure control, adjustment of the mA and/or kV according to patient size, and/or use of iterative reconstruction technique. This report was created using [employer] report generation technology. MIP reconstructed images were created and reviewed. CONTRAST: IV 100mL [id number] RADIATION DOSE: CTDIvol = 18.49 mGy, DLP = 598.63 mGy-cm COMPARISON: None. FINDINGS: PULMONARY ARTERIES: Unremarkable. Normal in caliber. No evidence of pulmonary embolism. AORTA: Unremarkable. Normal in caliber. No evidence of dissection. GREAT VESSELS OF AORTIC ARCH: Unremarkable. Normal in caliber. No evidence of dissection. LUNGS AND PLEURAL SPACES: Minimal subsegmental atelectases in the lower lobes. No pleural effusion or thickening. No pneumothorax. No suspicious pulmonary nodules or infiltrates. HEART: Median sternotomy presumably from CABG procedure. No signs of right heart strain, ratio of right ventricle to left ventricle measures less than 1. Normal cardiac size. Normal pericardium. MEDIASTINUM: Small hiatal hernia. No mediastinal or hilar adenopathy. Esophagus is unremarkable. THYROID: Unremarkable. No thyroid lesions. BONES/JOINTS: Unremarkable. No suspicious lytic or blastic abnormality. CT/CTA Chest W/WO Contrast IMPRESSION: 1. No CTA evidence of thoracic aortic aneurysm or dissection. 2. Less than optimal contrast enhancement of the pulmonary arteries but no suspicious pulmonary thromboemboli. 3. No acute chest abnormality. Electronically Signed: Memo Beatty MD at 11:35 EST ,
[2022-06-19 07:30] LABS: CREATININE FINGERSTICK < 0.9 mg/dL (0.70-1.30); EGFR FINGERSTICK > 60.0000 mL/min (>60)
== END | disposition home or self-care (01) ==
PROVIDERS: PCP Family Medicine; Referring Provider Nurse Practitioner Gerontology; Visit Provider Nurse Practitioner Gerontology
DX: I77.810 Thoracic aortic ectasia (principal)
CPT/HCPCS: 71275; Q9967

== ENCOUNTER 2023-06-19 08:53 | Outpatient (CLI) | payer MEDICARE, SELFPAY ==
[2023-06-19 09:34] LABS: PSA,Total - Annual Screen 0.48 ng/mL (0.00-4.00)
== END 2023-06-19 23:59 | disposition home or self-care (01) ==
LOC: OLS.ABSOLU 08:54
PROVIDERS: PCP Family Medicine; Visit Provider Nurse Practitioner
DX: Z12.5 Encounter for screening for malignant neoplasm of prostate (principal)
CPT/HCPCS: 36415; 84153; G0103

== ENCOUNTER 2023-08-03 21:05 | Emergency (ER) | payer MEDICARE, SELFPAY ==
[2023-08-03 21:05] VITALS: BP 161/93; PULSE 68; RESP 16; TEMP 35.6; O2SAT 94
[2023-08-03 21:08] VITALS: BP 161/93; PULSE 68; RESP 16; TEMP 35.6; O2SAT 94; BMI 35.4
--- NOTE | 2023-08-03 21:44 | RAD_ITS ---
INDICATION: chest pain EXAMINATION/TECHNIQUE: X-RAY - XR Chest 1 View COMPARISON: June 14, 2020 chest x-ray FINDINGS: LINES/DEVICES: None. Intact sternotomy wires. Overlying heart monitoring wires. LUNGS: Symmetric normal lung volumes. No airspace opacity or abnormal interstitial pattern. No nodule or mass. No pleural effusion or pneumothorax. Thin linear opacity left lateral periphery, lung base, likely representing scarring; unchanged compared to prior exam. MEDIASTINUM AND CARDIOVASCULAR STRUCTURES: Normal size and contour of the cardiomediastinal silhouette. No evidence of pulmonary vascular congestion. BONES AND SOFT TISSUES: Distal right clavicular resection. RAD/Chest 1 View (Portable) IMPRESSION: 1. No radiographic evidence of acute cardiopulmonary disease. Electronically Signed: Boaz Abraham DO at 22:22 EDT ,
--- NOTE | 2023-08-03 21:44 | EKG12_ITS ---
Test Reason : DYSRHYTHMIA Blood Pressure : / mmHG Vent. Rate : 064 BPM Atrial Rate : 064 BPM P-R Int : 276 ms QRS Dur : 102 ms QT Int : 408 ms P-R-T Axes : 032 022 049 degrees QTc Int : 420 ms Sinus rhythm with 1st degree A-V block Incomplete right bundle branch block Septal infarct (cited on or before 14-JUN-2020) Abnormal ECG Confirmed by Boaz Castillo ([id number]), greeting card editor BEATRICE TRAVIS ([id number]) on 08/05/2023 9:54:52 AM Referred By: Confirmed By:Boaz Castillo
[2023-08-03 21:54] LABS: Absolute Lymphocyte Count 2.06 X10^3/uL (0.83-4.51); Absolute Neutrophil Count 4.5 X10^3/uL (2.0-7.7); Basophil# 0.07 X10^3/uL; Basophil% 0.9 % (0-1); Eosinophil# 0.29 X10^3/uL; Eosinophils% 3.8 % (0-5); Hematocrit 41.8 % (40-54); Hemoglobin 14.2 g/dL (13.0-16.5); Lymphocyte # 2.06 X10^3/ul (0.83-4.51); Lymphocyte % 27.1 % (19-41); Mean Corpuscular Hgb 31.8 pg (27.0-32.0); Mean Corpuscular Volume 93.5 fL (80-94); Mean Platelet Vol. 9.7 fl (6.2-12.0); Monocyte# 0.68 X10^3/uL; Monocyte% 8.9 % (0-10); NRBC Flagged by Analyzer 0 % (0-5); Neutrophil # 4.49 X10^3/uL (2.7-7.7); Platelet Count 197 K/mm3 (150-450); RBC Distribution Width CV 11.3 % (11.6-14.6); RBC Distribution Width SD 38.5 fl (35.1-43.9); Red Blood Count 4.47 M/mm3 (4.6-6.2); White Blood Count 7.6 K/mm3 (4.4-11.0)
[2023-08-03 22:18] LABS: Anion Gap 7 (5-15); BUN 10 mg/dL (7-18); BUN/Creat Ratio 9.6 RATIO (10-20); Calcium,Total 8.8 mg/dL (8.5-10.1); Chloride 100 mmol/L (98-107); Creatinine, Serum 1.04 mg/dL (0.70-1.30); EST Glomerular Filtration Rate 75 mL/min (>60); Est Glom Filt Rate - Afr Amer 90 mL/min (>60); Estimated Creatinine Clearance 82.95 ml/min; Glucose 191 mg/dL (74-106); Potassium 3.6 mmol/L (3.5-5.1); Sodium Level 136 mmol/L (136-145); Troponin-I HS < 3 pg/mL (3.0-78.0)
--- NOTE | 2023-08-03 22:18 | EX.ED.DYSGE1 ---
HPI History of Present Illness Chief Complaint: Hypertension Narrative Narrative: Presents for evaluation elevated blood pressure transient epigastric discomfort and headache. Taking his typical blood pressure this evening 134 over 90s. He felt as though hide I kept checking it was higher and higher. 830 felt some pressure in his upper abdomen and headache has since resolved. History of three-vessel bypass 2019. He has been compliant with his blood pressure medicines of hydrochlorothiazide and metoprolol. Denies cough. Denies vomiting diarrhea. Denies urinary symptoms. PFSH [facility] Medical History Aortic root dilatation Atherosclerotic heart disease of [place] coronary artery with other forms of angina pectoris Diabetes mellitus, type II Essential hypertension History of left heart catheterization (09/11/18) History of pneumothorax Hyperlipidemia Home Medications saw palmetto 160 mg capsule 160 mg PO DAILY PROSTATE 09/10/18 [History Last Taken 09/09/18] sildenafil 50 mg tablet 50 mg PO DAILY PRN ED 09/10/18 [History Last Taken Unknown] acetaminophen 325 mg tablet 650 mg PO Q4H PRN Pain Or Fever 10/29/18 [History Last Taken Unknown] aspirin 81 mg tablet,delayed release 81 mg PO DAILY HEART HEALTH 10/29/18 [History Last Taken Unknown] melatonin 10 mg capsule 10 mg PO QHS 06/14/20 [History Last Taken Unknown] alfuzosin 10 mg tablet,extended release 24 hr 10 mg PO DAILY 06/15/22 [History Last Taken Unknown] metformin 500 mg tablet 500 mg PO BID DM 08/03/22 [History Last Taken Unknown] hydrochlorothiazide 12.5 mg tablet See Rx Instructions .Route .COMPLEX #90 tabs 09/17/22 [Rx Last Taken Unknown] atorvastatin 40 mg tablet 40 mg PO QHS #90 tabs 12/14/22 [Rx Last Taken Unknown] metoprolol tartrate 25 mg tablet 25 mg PO BID 12/14/22 [History Last Taken Unknown] dulaglutide 0.75 mg/0.5 mL subcutaneous pen injector (Trulicity) 0.75 mg subcut QWEEK 06/19/23 [History Last Taken Unknown] lancets 33 gauge (OneTouch Delica Plus Lancet) 08/03/23 [History Last Taken Unknown] Allergy/AdvReac Type Severity Reaction Status Date / Time poison princess extract Allergy Severe rash Verified 08/03/23 21:07 losartan AdvReac Intermediate Hypotension, Verified 08/03/23 21:07 lightheaded lisinopril AdvReac Hypotension Verified 08/03/23 21:07 /lightheade d Family History (Reviewed 06/19/23 @ 08:38 by Yuli Carrizales [employer], [employer]-C) Mother Cancer Father Colon cancer Brother Renal cancer Grandfather CAD (coronary artery disease) Surgical History History of coronary artery bypass surgery (~09/16/18) Social History Smoking Status: Never smoker alcohol intake: current alcohol intake frequency: a few times a week substance use type: does not use caffeine: Yes Type: coffee Number of servings: 3 ROS ROS ED Constitutional Constitutional ED: Denies chills, fever(s) or sweats Eyes Eyes: Denies change in vision ENT ENT ED: Denies dysphagia or sore throat Cardiovascular Cardiovascular: Denies chest pain, leg edema, palpitations or racing heartbeat Respiratory/Chest Respiratory/Chest: Denies cough, dyspnea or dyspnea on exertion Gastrointestinal Gastrointestinal: Reports abdominal pain; Denies diarrhea, nausea or vomiting Genitourinary Genitourinary ED: Denies dysuria, hematuria or urinary frequency Musculoskeletal Musculoskeletal: Denies back pain, extremity pain or neck pain Integumentary Denies rash or wounds Neurologic Neurologic: Reports headache(s); Denies paresthesias or weakness EXAM Physical Exam Const Vital Signs: 08/03/23 21:08 08/03/23 21:05 08/03/23 21:21 Temperature 96.1 F L 96.1 F L Temperature Source Temporal Temporal Pulse Rate 68 68 Respiratory Rate 16 16 Respiratory Effort Normal Respiratory Pattern Normal Blood Pressure 161/93 H 161/93 H Blood Pressure Mean 115 115 Pulse Ox 94 94 Oxygen Delivery Method Room Air Room Air 08/03/23 22:51 Temperature 97.8 F Temperature Source Pulse Rate 58 L Respiratory Rate 14 Respiratory Effort Respiratory Pattern Blood Pressure 136/88 H Blood Pressure Mean 104 Pulse Ox 96 Oxygen Delivery Method Positive well nourished and well developed General Appearance ED: well developed and NAD HEENT Reports moist mucous membranes normocephalic and atraumatic Eyes PERRL, EOMs intact bilaterally and conjunctivae normal General Eye ED: Yes normal appearance of both eyes Neck no lymphadenopathy and supple General: Negative for tenderness Chest Wall palpation of chest normal Chest Narrative: Healed midline chest scar. Chest: Negative for tenderness Resp normal respiratory effort and normal air movement Effort and Inspection: symmetric chest movement; Negative for respiratory distress Cardio regular rate, regular rhythm and no murmurs Peripheral Pulses: pulses 2+ throughout GI normal to inspection, nondistended, normoactive bowel sounds and non-tender Palpation: Negative for guarding or rebound tenderness present Back/Spine no CVA tenderness and no thoracic nor lumbar tenderness Extremity normal to inspection General Extremety ED: Negative for edema or tenderness General Extremity: Negative for edema Neuro oriented x3 and no sensory deficits noted Sensorium / Orientation: awake and alert Skin no rashes or lesions noted and no wounds MDM MDM MDM Narrative Medical decision making narrative: Interventions / MDM: Differential diagnosis: Hypertension Diagnosis considered but do not suspect: No hypertensive emergency symptoms, ACS however EKG and troponin negative. My EKG interpretation: Sinus rate of 64, no ST changes, T wave version anterior leads V1 V2. Similar to EKG June 2020. Imaging independently reviewed and interpreted by myself: 1 view chest x-ray: No acute process also read by radiology External documents reviewed: N/A Test considered but not ordered:N/A ED course: Patient currently asymptomatic triage blood pressure 161/93 in the room on evaluation 144/91. Nursing protocol labs were initiated. EKG with chronic changes. Troponin returned negative less than 3. ACS ruled out from this per algorithm. Blood pressure improving without intervention. Patient reassured will keep a log of blood pressure. Discussed return precautions. All questions were answered. Re-evaluation: stable Disposition discussed with patient/family/significant other: Patient and significant other Case discussed with consulting clinician: N/A This note was generated with [employer] dictation software. It may contain incorrect words, spelling, and punctuation that were not noted in checking the note before signing. Lab Data Attestation: I reviewed the patient's lab results. Labs: Laboratory Results - last 24 hr 08/03/23 21:25 WBC 7.6 RBC 4.47 L Hgb 14.2 Hct 41.8 MCV 93.5 MCH 31.8 MCHC 34.0 RDW Std Deviation 38.5 RDW Coeff of Jessica 11.3 L Plt Count 197 MPV 9.7 Immature Gran % (Auto) 0.300 Neut % (Auto) 59.0 Lymph % (Auto) 27.1 [place] % (Auto) 8.9 Eos % (Auto) 3.8 Baso % (Auto) 0.9 Absolute Neuts (auto) 4.5 Absolute Lymphs (auto) 2.06 Nucleated RBC % 0 Sodium 136 Potassium 3.6 Chloride 100 Carbon Dioxide 29.0 Anion Gap 7 BUN 10 Creatinine 1.04 Estim Creat Clear Calc 82.95 Est GFR (MDRD) Af Amer 90 Est GFR (MDRD) Non-Af 75 BUN/Creatinine Ratio 9.6 L Glucose 191 H Calcium 8.8 Troponin I High Sens < 3 L Radiography Diagnostic Testing: Clinical Impression(s) from Imaging Studies Chest X-Ray 08/03/23 21:44 IMPRESSION: 1. No radiographic evidence of acute cardiopulmonary disease. Electronically Signed: Boaz Abraham DO at 22:22 EDT , Discharge Plan Triage Chief Complaint: Hypertension ED Provider: Moshe Munguia Dx/Rx/DC Orders Clinical Impression: Elevated blood pressure reading in office with diagnosis of hypertension, History of coronary artery bypass surgery Instructions: ED Hypertension, Established Prescriptions: No Action acetaminophen 325 mg tablet 650 mg PO Q4H PRN (Reason: Pain Or Fever) alfuzosin 10 mg tablet extended release 24 hr 10 mg PO DAILY Rx Instructions: administer after the same meal each day metoprolol tartrate 25 mg tablet 25 mg PO BID Trulicity 0.75 mg/0.5 mL pen injector 0.75 mg subcut QWEEK sildenafil 50 MG tablet 50 mg PO DAILY PRN (Reason: ED) saw palmetto 160 MG capsule 160 mg PO DAILY aspirin 81 mg tablet,delayed release (DR/EC) 81 mg PO DAILY melatonin 10 MG capsule 10 mg PO QHS (DME) lancets [OneTouch Delica Plus Lancet] 33 gauge misc 1 lancet MISCELLANEOUS DAILY metformin 500 mg tablet 500 mg PO BID hydrochlorothiazide 12.5 mg tablet See Rx Instructions .ROUTE .COMPLEX Qty: 90 3RF Dose Instruction: take 1 tablet by mouth once daily Rx Instructions: take 1 tablet by mouth once daily atorvastatin 40 mg tablet 40 mg PO QHS Qty: 90 3RF Primary Care Provider: Chris Calhoun Referrals: Chris Calhoun MD [Primary Care Provider] - 1 Week Activity Restrictions/Additional Instructions: Initial blood pressure 161/93, rechecked at 140/90. Cardiac workup negative. EKG normal. Chest x-ray negative. Keep a log of your blood pressure continue home medications. Follow-up with your doctor. If develop new symptoms or worsening return to the ED for reevaluation. Disposition Disposition: Home, Self Care Discharge Date/Time: 08/03/23 22:54
[2023-08-03 22:51] VITALS: BP 136/88; PULSE 58; RESP 14; TEMP 36.6; O2SAT 96
== END 2023-08-03 22:54 | disposition home or self-care (01) ==
PROVIDERS: Physician Assistant; Emergency Provider Emergency Medicine; PCP Family Medicine; Visit Provider Emergency Medicine
DX: I10 Essential (primary) hypertension (principal); E11.9 Type 2 diabetes mellitus without complications; I25.10 Atherosclerotic heart disease of native coronary artery without angina pectoris; Z79.82 Long term (current) use of aspirin; Z79.899 Other long term (current) drug therapy; Z79.84 Long term (current) use of oral hypoglycemic drugs
CPT/HCPCS: 71045; 80048; 84484; 85025; 93005; 99283

== ENCOUNTER → 2024-02-24 | Outpatient (CLI) | payer MEDICARE, SELFPAY ==
[2024-02-24 16:22] LABS: Anion Gap 8 (5-15); BUN 12 mg/dL (7-18); Calcium,Total 9.4 mg/dL (8.5-10.1); Chloride 97 mmol/L (98-107); Creatinine, Serum 0.92 mg/dL (0.70-1.30); EST Glomerular Filtration Rate 85 mL/min (>60); Est Glom Filt Rate - Afr Amer 103 mL/min (>60); Glucose 154 mg/dL (74-106); Sodium Level 133 mmol/L (136-145)
== END | disposition home or self-care (01) ==
LOC: LAB 15:01
PROVIDERS: PCP Family Medicine; Referring Provider Nurse Practitioner Gerontology; Visit Provider Nurse Practitioner Gerontology
DX: I10 Essential (primary) hypertension (principal)
CPT/HCPCS: 36415; 80048

== ENCOUNTER → 2024-06-23 | Outpatient (CLI) | payer MEDICARE, SELFPAY | END | disposition home or self-care (01) | PROVIDERS: PCP Family Medicine; Referring Provider Urology; Visit Provider Urology | DX: Z12.5 Encounter for screening for malignant neoplasm of prostate (principal) | CPT/HCPCS: 36415; 84153; G0103 ==